=== PATIENT | female | born 1985 | race Caucasian/White ===

== ENCOUNTER 2018-02-04 17:07 | Inpatient (IN) | payer OTHER ==
[2018-02-04] MEDS ORDERED: Tranexamic Acid 1,000 MG in Sodium Chloride 0.9% 100 ML IV PRN (17:13)
[2018-02-04] MEDS ORDERED: Lidocaine 1% 50 ML MDV INJECT PRN (17:13)
[2018-02-04] MEDS ORDERED: Carboprost Tromethamine 250 MCG/1 ML Amp IM PRN (17:13)
[2018-02-04] MEDS ORDERED: Misoprostol 200 MCG Tab PO PRN (17:13)
[2018-02-04] MEDS ORDERED: Nalbuphine 10 MG/1 ML Vial IVPUSH PRN (17:13)
[2018-02-04] MEDS ORDERED: Sodium Chloride 0.9% 10 ML Syringe FLUSH PRN (17:13)
[2018-02-04] MEDS ORDERED: Water For Irrigation,Sterile 1,000 ML Container IRR PRN (17:13)
[2018-02-04] MEDS ORDERED: Sodium Chloride 0.9% 2.5 ML Syringe FLUSH PRN (17:13)
[2018-02-04] MEDS ORDERED: Methylergonovine 0.2 MG/1 ML Amp IM PRN (17:13)
[2018-02-04] MEDS ORDERED: Terbutaline 1 MG/ML SDV SUBCUT PRN (17:15)
[2018-02-04] MEDS ORDERED: Misoprostol 25 MCG (1/4 of 100 MCG) Tab VAG PRN (17:15)
[2018-02-04] MEDS ORDERED: Oxytocin/0.9 % Sodium Chloride 30 UNIT/500 ML BAG IV SCH ×2 (17:15)
[2018-02-04] MEDS ORDERED: Ampicillin 2 GM in Sodium Chloride 0.9% 100 ML IV ONE (17:24)
[2018-02-04] MEDS ORDERED: Misoprostol 25 MCG (1/4 of 100 MCG) Tab VAG ONE (17:30)
[2018-02-04] MEDS: Lactated Ringers 1,000 ML IV SCH (17:43)
[2018-02-04] MEDS: Ampicillin 1 GM in Sodium Chloride 0.9% 50 ML IV SCH (22:09)
[2018-02-05] MEDS: Ampicillin 1 GM in Sodium Chloride 0.9% 50 ML IV SCH ×5 (02:04→17:59)
[2018-02-05] MEDS: Butorphanol 1 MG/ML SDV IVPUSH PRN ×3 (02:46→07:30)
[2018-02-05] MEDS: Lactated Ringers 1,000 ML IV SCH ×2 (10:33→11:28)
[2018-02-05] MEDS ORDERED: fentaNYL 100 MCG/2 ML SDV ONE (11:08)
--- NOTE | 2018-02-05 11:45 | PCM.PREANE ---
Preanesthetic Assessment - Anesthesia/Transfusion/Family Hx Anesthesia History: Prior Anesthesia Reaction (pt states initially @ 3 yrs of age had a reaction to "tsering local anesthetics"; but then said has had similar reactions with general anesthesia where she gets bradycardic. Pt's HR appears to run 50's-60's) Other Type of Anesthesia Reaction Comment: bradycardia with general anesthesia, reports it does not happen every time Family History of Anesthesia Reaction: No Transfusion History: No Prior Transfusion(s) Intubation History: Unknown - Review of Systems General: No Symptoms Pulmonary: No Symptoms Cardiovascular: No Symptoms Gastrointestinal: No Symptoms Neurological: No Symptoms Other: Reports: None - Physical Assessment NPO Status Date: 02/05/18 NPO Status Time: 11:48 Blood Pressure: 136/79 Height: 5 ft 10.8 in Weight: 240 lb ASA Class: 2 Mental Status: Alert & Oriented x3 Airway Class: Mallampati = 2 Dentition: Reports: Normal Dentition Thyro-Mental Finger Breadths: 3 Mouth Opening Finger Breadths: 3 ROM/Head Extension: Full Lungs: Clear to Auscultation, Normal Respiratory Effort Cardiovascular: Regular Rate, Regular Rhythm, Bradycardia (borderline 50's-60's) - Lab Values: Laboratory Last Values WBC 12.43 K/uL (4.0-11.0) H 02/04/18 17:36 RBC 3.84 M/uL (4.30-5.90) L 02/04/18 17:36 Hgb 11.7 g/dL (12.0-16.0) L 02/04/18 17:36 Hct 35.0 % (36.0-46.0) L 02/04/18 17:36 MCV 91.1 fL (80.0-98.0) 02/04/18 17:36 MCH 30.5 pg (27.0-32.0) 02/04/18 17:36 MCHC 33.4 g/dL (31.0-37.0) 02/04/18 17:36 RDW Std Deviation 49.9 fl (28.0-62.0) 02/04/18 17:36 RDW Coeff of Alexx 15 % (11.0-15.0) 02/04/18 17:36 Plt Count 303 K/uL (150-400) 02/04/18 17:36 MPV 10.60 fL (7.40-12.00) 02/04/18 17:36 Nucleated RBC % 0.0 /100WBC 02/04/18 17:36 Nucleated RBCs # 0 K/uL 02/04/18 17:36 Blood Type O POSITIVE 02/04/18 17:36 Antibody Screen NEGATIVE 02/04/18 17:36 - Allergies Allergies/Adverse Reactions: Allergies Allergy/AdvReac Type Severity Reaction Status Date / Time Anesthetics - Tsering Type- Allergy Bradycardia Verified 04/09/16 14:12 Parabens [Anesthetics - Tsering Type] sulfamethoxazole Allergy Vomiting Verified 04/09/16 14:12 [From Bactrim] trimethoprim [From Bactrim] Allergy Vomiting Verified 04/09/16 14:12 molds Allergy Shortness Uncoded 04/09/16 14:12 of Breath - Blood Blood Available: No Product(s) Available: None - Anesthesia Plan Free Text/Narrative:: Labor Epidural Pre-Op Medication Ordered: None - Acknowledgements Anesthesia Type Planned: Epidural Pt an Appropriate Candidate for the Planned Anesthesia: Yes Alternatives and Risks of Anesthesia Discussed w Pt/Guardian: Yes Pt/Guardian Understands and Agrees with Anesthesia Plan: Yes PreAnesthesia Questionnaire HEENT History: Reports: Impaired Vision, Other (See Below) Other HEENT History: scotopic sensitivity Cardiovascular History: Reports: None Respiratory History: Reports: Asthma Gastrointestinal History: Reports: None Genitourinary History: Reports: None [employer] History: Reports: Ectopic , , Spontaneous Other OB/BYN History: Invitro- fertilization Musculoskeletal History: Reports: None Neurological History: Reports: None Psychiatric History: Reports: None Endocrine/Metabolic History: Reports: Hypothyroidism Hematologic History: Reports: None Immunologic History: Reports: None Oncologic (Cancer) History: Reports: None Dermatologic History: Reports: None - Infectious Disease History Infectious Disease History: Reports: None - Past Surgical History Head Surgeries/Procedures: Reports: None HEENT Surgical History: Reports: Adenoidectomy, Tonsillectomy Cardiovascular Surgical History: Reports: None Respiratory Surgical History: Reports: Other (See Below) GI Surgical History: Reports: None Endocrine Surgical History: Reports: None Musculoskeletal Surgical History: Reports: Arthroscopic Knee - SUBSTANCE USE Smoking Status *Q: Never Smoker Second Hand Smoke Exposure: No Days Per Week of Alcohol Use: 1 Recreational Drug Use History: No - HOME MEDS Home Medications: Home Meds Estrogen Tablets PO DAILY 04/09/16 [History] Levothyroxine [Synthroid] 50 mcg PO ACBREAKFAST 04/09/16 [History] #103/Iron Fumarate/Fa [ ] 1 each PO DAILY 04/09/16 [ History] Docosahexanoic Acid [DHA] 02/04/18 [History] Lansoprazole [Prevacid 24Hr] 15 mg PO DAILY 02/04/18 [History] Loratadine [Claritin] 10 mg PO 02/04/18 [History] Magnesium Amino Acid Chelate [Magnesium] 27 mg PO 02/04/18 [History] - CURRENT (IN HOUSE) MEDS Current Meds: Current Medications Butorphanol Tartrate (Stadol) 1 mg IVPUSH Q1H PRN PRN Reason: Pain Last Admin: 02/05/18 07:30 Dose: 1 mg Carboprost Tromethamine (Hemabate Ds) 250 mcg IM ASDIRECTED PRN PRN Reason: Post Hemorrhage Lactated Ringer's (Ringers, Lactated) 1,000 mls @ 150 mls/hr IV ASDIRECTED JEWELL Last Admin: 02/05/18 11:28 Dose: 150 mls/hr Oxytocin/Sodium Chloride (Oxytocin 30 Unit/500 Ml-Ns) 30 unit in 500 mls @ 999 mls/hr IV TITRATE [facility] Tranexamic Acid 1,000 mg/ (Sodium Chloride) 110 mls @ 660 mls/hr IV ONETIME PRN PRN Reason: Bleeding Oxytocin/Sodium Chloride (Oxytocin 30 Unit/500 Ml-Ns) 30 unit in 500 mls @ 2 mls/hr IV [facility]RATE [facility]; Protocol Last Titration: 02/05/18 09:49 Dose: 12 munits/min, 12 mls/hr Ampicillin Sodium 1 gm/ Sodium (Chloride) 50 mls @ 100 mls/hr IV Q4H [facility] Last Admin: 02/05/18 09:51 Dose: 100 mls/hr Lidocaine HCl (Xylocaine 1%) 50 ml INJECT .ONCE PRN PRN Reason: Laceration repair Methylergonovine Maleate (Methergine) 0.2 mg IM ASDIRECTED PRN PRN Reason: Post Hemorrhage Misoprostol (Cytotec) 200 mcg PO .ONCE PRN PRN Reason: Post Hemorrhage Misoprostol (Cytotec) 25 mcg VAG Q6H PRN PRN Reason: Cervical Ripening Last Admin: 02/05/18 00:05 Dose: 25 mcg Nalbuphine HCl (Nubain) 10 mg IVPUSH Q1H PRN PRN Reason: Pain (severe 7-10) Sodium Chloride (Saline Flush) 10 ml FLUSH ASDIRECTED PRN PRN Reason: Keep Vein Open Sodium Chloride (Saline Flush) 2.5 ml FLUSH ASDIRECTED PRN PRN Reason: Keep Vein Open Sterile Water (Sterile Water For Irrigation) 1,000 ml IRR ASDIRECTED PRN PRN Reason: delivery Terbutaline Sulfate (Brethine) 0.25 mg SUBCUT ASDIRECTED PRN PRN Reason: Tacysystole Discontinued Medications Fentanyl (Sublimaze) Confirm Administered Dose 100 mcg .ROUTE .STK-MED ONE Stop: 02/05/18 11:09 Ampicillin Sodium 2 gm/ Sodium (Chloride) 100 mls @ 200 mls/hr IV ONETIME ONE Stop: 02/04/18 17:53 Last Infusion: 02/04/18 18:30 Dose: Infused Fentanyl/Bupivacaine HCl (Ebifaoer-Cbqon-Cl 2 Mcg/Ml-0.125%) Confirm Administered Dose 100 mls @ as directed EP .STK-MED ONE Stop: 02/05/18 11:09 Misoprostol (Cytotec) 25 mcg VAG ONETIME ONE Stop: 02/04/18 17:31 Last Admin: 02/04/18 18:00 Dose: 25 mcg
[2018-02-05] MEDS ORDERED: Acetaminophen 500 MG Tab PO ONE (17:25)
--- NOTE | 2018-02-05 18:17 | PCM.SN ---
- Free Text/Narrative Note: consulted to exchange infusion bag running into epidural. 10 ml left. Pt using PCEA, last demand was 5-8 min ago. Feeling pressure on bottom. Last check showed 8 cm about 20 min ago. Gave an epidural bolus of 10 ml 0.125% bupiv with fent from the epidural bag. Bag changed to a new bag of 100 ml minus the 10 ml I winston from it. No comps. Report of my changes communicated to the OPTICAL TECHNICIAN front office manager.
[2018-02-05] MEDS ORDERED: Bisacodyl 10 MG Supp RECTAL PRN (19:24)
[2018-02-05] MEDS ORDERED: Acetaminophen 500 MG Tab PO PRN (19:24)
[2018-02-05] MEDS ORDERED: Witch Hazel Medicated Pads 40/Jar TOP PRN (19:24)
[2018-02-05] MEDS ORDERED: Methylergonovine 0.2 MG/1 ML Amp IM PRN (19:24)
[2018-02-05] MEDS ORDERED: Lanolin 100% Cream 7 GM Tube TOP PRN (19:24)
[2018-02-05] MEDS ORDERED: oxyCODONE 5 MG Tab PO PRN (19:24)
[2018-02-05] MEDS ORDERED: Ibuprofen 400 MG Tab PO PRN (19:24)
[2018-02-05] MEDS ORDERED: Docusate Sodium 100 MG Cap PO PRN (19:24)
[2018-02-05] MEDS ORDERED: Benzocaine/Menthol 20%-0.5% Spray 78 GM Cannister ONE (22:12)
[2018-02-05] MEDS: Ibuprofen 800 MG Tab PO PRN (22:16)
--- NOTE | 2018-02-06 00:50 | OR ---
SURGEON: Nicky Prescott M.D. DATE OF PROCEDURE: 02/05/2018 PREOPERATIVE DIAGNOSES: 1. A 40-3/7 weeks' intrauterine . 2. Polyhydramnios. 3. Group B Streptococcus positive. POSTOPERATIVE DIAGNOSES: 1. A 40-3/7 weeks' intrauterine . 2. Polyhydramnios. 3. Group B Streptococcus positive. PROCEDURES PERFORMED: Cytotec and Pitocin induction of labor, term spontaneous vaginal delivery, and repair of first-degree laceration. ANESTHESIA: Epidural. ESTIMATED BLOOD LOSS: Less than 300 mL. FINDINGS: Liveborn female, scores of 8 and 9, weight is pending at the time of dictation. Placenta; spontaneous, Schultze, intact with 3 vessels. First- degree perineal laceration repaired. COMPLICATIONS: None known. DISPOSITION: Mother and baby are in LDRP in good condition. BRIEF HISTORY: This is a 32-year-old female G2, P0-0-1-0. She presents at 40-3/7 weeks' gestation with polyhydramnios and for induction of labor. Her cervix was initially closed and thick. She received 3 doses of Cytotec vaginally followed by Pitocin in the morning. She was 2 cm and 50% effaced. Pitocin was initiated. She had category 1 heart tones. She had received ampicillin since onset of the Cytotec for group B Strep prophylaxis. She continued to have category 1 heart tones. She had spontaneous rupture of membranes at approximately 3:30 p.m., and by 6:30 p.m., she had progressed to complete. DESCRIPTION OF PROCEDURE: With the patient in the dorsal lithotomy position, the patient pushed over a 45- minute time period to a 5+ station, at which time the head was delivered spontaneously and atraumatically over the perineum with support with subsequent delivery of the 's shoulders and body without any difficulty. The infant was bulb suctioned by nose and mouth. The cord was clamped x2 and cut after it had ceased to pulsate, and the was handed to the mother in the presence of the nurse attending delivery. The is a liveborn female with scores of 8 and 9, weight was pending at the time of dictation. Cord blood was collected for cord ABGs as well as routine cord blood sampling. Pitocin was initiated after delivery of the infant to assist with delivery of the placenta, which was delivered spontaneously, Dorina, intact with 3 vessels. Upon inspection of the pelvis and perineum, there were no periurethral, vaginal sidewall, cervical, rectal, or labial lacerations. There was a first-degree laceration extending just through the skin on the perineum. This was repaired using a running locked suture of 3-0 Polysorb for the vaginal mucosa and a subcuticular suture of the same for the skin. Final sponge, needle, and instrument counts were correct. There were no known complications. Mother and remained in LDRP in good condition. RINA / SHARYN /[id number]
--- NOTE | 2018-02-06 06:05 | PCM48HPAN ---
Post Anesthesia Note - EVALUATION WITHIN 48HRS OF ANESTHETIC Vital Signs in Normal Range: Yes Patient Participated in Evaluation: Yes Respiratory Function Stable: Yes Airway Patent: Yes Cardiovascular Function Stable: Yes Hydration Status Stable: Yes Pain Control Satisfactory: Yes Nausea and Vomiting Control Satisfactory: Yes Mental Status Recovered: Yes Resp Rate: 16 Blood Pressure: 136/79 - COMMENTS/OBSERVATIONS Free Text/Narrative:: Pt sitting up in bed this AM. Pt denies any residual numbness, but states she hasn't been out of bed yet. No apparent anesthesia complications.
--- NOTE | 2018-02-06 08:13 | PCM.PNPP ---
- General Info Date of Service: 02/06/18 Functional Status: Reports: Pain Controlled, Tolerating Diet, Ambulating, Urinating - Review of Systems General: Denies: Fever, Weakness, Fatigue Pulmonary: Denies: Shortness of Breath, Pleuritic Chest Pain, Cough Cardiovascular: Denies: Chest Pain, Palpitations, Dyspnea on Exertion Gastrointestinal: Denies: Abdominal Pain Genitourinary: Denies: Dysuria - General Info Date of Service: 02/06/18 - Patient Data Vital Signs - Most Recent: Last Vital Signs Temp 36.9 C 02/06/18 05:58 Pulse 70 02/06/18 05:58 Resp 16 02/06/18 06:05 BP 136/79 02/06/18 06:05 Pulse Ox 96 02/06/18 05:58 Weight - Most Recent: 108.862 kg I&O - Last 24 Hours: Intake & Output 02/05/18 02/06/18 02/06/18 22:59 06:59 14:59 Output Total 350 Balance -350 Lab Results - Last 24 Hours: Laboratory Results - last 24 hr 02/06/18 Range/Units 04:35 Hgb 10.8 L (12.0-16.0) g/dL Hct 32.3 L (36.0-46.0) % Med Orders - Current: Current Medications Acetaminophen (Tylenol Extra Strength) 500 mg PO Q4H PRN PRN Reason: Pain Acetaminophen (Tylenol Extra Strength) 1,000 mg PO Q4H PRN PRN Reason: Pain Bisacodyl (Dulcolax) 10 mg RECTAL .ONCE PRN PRN Reason: Constipation Docusate Sodium (Colace) 100 mg PO BID PRN PRN Reason: Constipation Emollient Ointment (Lansinoh Hpa) 0 gm TOP ASDIRECTED PRN PRN Reason: Sore Nipples Last Admin: 02/05/18 21:51 Dose: 1 applic Ibuprofen (Motrin) 400 mg PO Q4H PRN PRN Reason: Pain Ibuprofen (Motrin) 800 mg PO Q6H PRN PRN Reason: Pain Last Admin: 02/05/18 22:16 Dose: 800 mg Methylergonovine Maleate (Methergine) 0.2 mg IM .ONCE PRN PRN Reason: Excessive Vaginal Bleeding Oxycodone HCl (Oxycodone) 5 mg PO Q2H PRN PRN Reason: Pain [place] (Tucks) 1 pad TOP ASDIRECTED PRN PRN Reason: comfort care Last Admin: 02/05/18 21:51 Dose: 1 applic Discontinued Medications Acetaminophen (Tylenol Extra Strength) 1,000 mg PO ONETIME ONE Stop: 02/05/18 17:26 Last Admin: 02/05/18 17:45 Dose: 1,000 mg Benzocaine/Menthol (Dermoplast Pain Relief 20%-0.5% [place]) Confirm Administered Dose 78 gm .ROUTE .STK-MED ONE Stop: 02/05/18 22:13 Butorphanol Tartrate (Stadol) 1 mg IVPUSH Q1H PRN PRN Reason: Pain Last Admin: 02/05/18 07:30 Dose: 1 mg Carboprost Tromethamine (Hemabate Ds) 250 mcg IM ASDIRECTED PRN PRN Reason: Post Hemorrhage Fentanyl (Sublimaze) Confirm Administered Dose 100 mcg .ROUTE .STK-MED ONE Stop: 02/05/18 11:09 Lactated Ringer's (Ringers, Lactated) 1,000 mls @ 150 mls/hr IV ASDIRECTED [facility]WE[facility] Last Admin: 02/05/18 11:28 Dose: 150 mls/hr Oxytocin/Sodium Chloride (Oxytocin 30 Unit/500 Ml-Ns) 30 unit in 500 mls @ 999 mls/hr IV TITRATE [facility] Tranexamic Acid 1,000 mg/ (Sodium Chloride) 110 mls @ 660 mls/hr IV ONETIME PRN PRN Reason: Bleeding Oxytocin/Sodium Chloride (Oxytocin 30 Unit/500 Ml-Ns) 30 unit in 500 mls @ 2 mls/hr IV TITRATE [facility]; Protocol Last Titration: 02/05/18 17:03 Dose: 20 munits/min, 20 mls/hr Ampicillin Sodium 2 gm/ Sodium (Chloride) 100 mls @ 200 mls/hr IV ONETIME ONE Stop: 02/04/18 17:53 Last Infusion: 02/04/18 18:30 Dose: Infused Ampicillin Sodium 1 gm/ Sodium (Chloride) 50 mls @ 100 mls/hr IV Q4H [facility] Last Admin: 02/05/18 17:59 Dose: 100 mls/hr Fentanyl/Bupivacaine HCl (L[place]uffe-Vgozb-Vi 2 Mcg/Ml-0.125%) Confirm Administered Dose 100 mls @ as directed EP .STK-MED ONE Stop: 02/05/18 11:09 Fentanyl/Bupivacaine HCl (Oiqrvfda-Ikqyu-Bc 2 Mcg/Ml-0.125%) Confirm Administered Dose 100 mls @ as directed EP .STK-MED ONE Stop: 02/05/18 18:04 Lidocaine HCl (Xylocaine 1%) 50 ml INJECT .ONCE PRN PRN Reason: Laceration repair Methylergonovine Maleate (Methergine) 0.2 mg IM ASDIRECTED PRN PRN Reason: Post Hemorrhage Misoprostol (Cytotec) 200 mcg PO .ONCE PRN PRN Reason: Post Hemorrhage Misoprostol (Cytotec) 25 mcg VAG ONETIME ONE Stop: 02/04/18 17:31 Last Admin: 02/04/18 18:00 Dose: 25 mcg Misoprostol (Cytotec) 25 mcg VAG Q6H PRN PRN Reason: Cervical Ripening Last Admin: 02/05/18 00:05 Dose: 25 mcg Nalbuphine HCl (Nubain) 10 mg IVPUSH Q1H PRN PRN Reason: Pain (severe 7-10) Sodium Chloride (Saline Flush) 10 ml FLUSH ASDIRECTED PRN PRN Reason: Keep Vein Open Sodium Chloride (Saline Flush) 2.5 ml FLUSH ASDIRECTED PRN PRN Reason: Keep Vein Open Sterile Water (Sterile Water For Irrigation) 1,000 ml IRR ASDIRECTED PRN PRN Reason: delivery Last Admin: 02/05/18 19:43 Dose: 1,000 ml Terbutaline Sulfate (Brethine) 0.25 mg SUBCUT ASDIRECTED PRN PRN Reason: Tacysystole - Infant Interaction Infant Disposition, : in Room with Family Interaction: Holding Infant Feeding: Breastfed Infant; Nursed Well Support Person: - Recovery Exam Fundal Tone: Firm Fundal Level: At Umbilicus Fundal Placement: Midline Lochia Amount: Small Lochia Color: Rubra/Red Perineum Description: Edematous Episiotomy/Laceration: Approximated Bladder Status: Voiding - Exam General: Alert, Oriented Neck: Supple Lungs: Clear to Auscultation Cardiovascular: Regular Rate, Regular Rhythm GI/Abdominal Exam: Normal Bowel Sounds, Soft, Non-Tender, No Distention Extremities: Normal Inspection, Normal Capillary Refill, Pedal Edema (trace) - Problem List Review Problem List Initiated/Reviewed/Updated: Yes - Assessment Assessment:: PPD #1 from minimal pain and lochia. Breast feeding well. Discharge home today. - Plan Plan:: Discharge instructions reviewed. Pelvic rest for 6 weeks. Continue PNV while breast feeding. Can use OTC ibuprofen/tylenol as needed for pain. Instructed patient to call if she develops fever greater than 101 or bleeding through a large pad an hour. F/U with [facility] in 6 weeks.
[2018-02-06] MEDS: Ibuprofen 800 MG Tab PO PRN ×3 (08:23→22:31)
[2018-02-06] MEDS: Acetaminophen 500 MG Tab PO PRN ×2 (12:32→19:36)
[2018-02-07] MEDS: Ibuprofen 800 MG Tab PO PRN ×2 (04:28→10:16)
--- NOTE | 2018-02-07 08:36 | PCM.PNPP ---
- General Info Date of Service: 02/07/18 Functional Status: Reports: Pain Controlled, Tolerating Diet, Ambulating - Review of Systems General: Reports: No Symptoms HEENT: Reports: No Symptoms Pulmonary: Reports: No Symptoms Cardiovascular: Reports: No Symptoms Gastrointestinal: Reports: No Symptoms Genitourinary: Reports: No Symptoms Musculoskeletal: Reports: No Symptoms Skin: Reports: No Symptoms Neurological: Reports: No Symptoms Psychiatric: Reports: No Symptoms - Patient Data Vital Signs - Most Recent: Last Vital Signs Temp 36.7 C 02/07/18 04:00 Pulse 62 02/07/18 04:00 Resp 15 02/07/18 04:00 BP 118/69 02/07/18 04:00 Pulse Ox 98 02/07/18 04:00 Weight - Most Recent: 108.862 kg Med Orders - Current: Current Medications Acetaminophen (Tylenol Extra Strength) 500 mg PO Q4H PRN PRN Reason: Pain Acetaminophen (Tylenol Extra Strength) 1,000 mg PO Q4H PRN PRN Reason: Pain Last Admin: 02/06/18 19:36 Dose: 1,000 mg Bisacodyl (Dulcolax) 10 mg RECTAL .ONCE PRN PRN Reason: Constipation Docusate Sodium (Colace) 100 mg PO BID PRN PRN Reason: Constipation Emollient Ointment (Lansinoh Hpa) 0 gm TOP ASDIRECTED PRN PRN Reason: Sore Nipples Last Admin: 02/05/18 21:51 Dose: 1 applic Ibuprofen (Motrin) 400 mg PO Q4H PRN PRN Reason: Pain Ibuprofen (Motrin) 800 mg PO Q6H PRN PRN Reason: Pain Last Admin: 02/07/18 04:28 Dose: 800 mg Methylergonovine Maleate (Methergine) 0.2 mg IM .ONCE PRN PRN Reason: Excessive Vaginal Bleeding Oxycodone HCl (Oxycodone) 5 mg PO Q2H PRN PRN Reason: Pain [place] (Tucks) 1 pad TOP ASDIRECTED PRN PRN Reason: comfort care Last Admin: 02/05/18 21:51 Dose: 1 applic Discontinued Medications Acetaminophen (Tylenol Extra Strength) 1,000 mg PO ONETIME ONE Stop: 02/05/18 17:26 Last Admin: 02/05/18 17:45 Dose: 1,000 mg Benzocaine/Menthol (Dermoplast Pain Relief 20%-0.5% [place]) Confirm Administered Dose 78 gm .ROUTE .STK-MED ONE Stop: 02/05/18 22:13 Butorphanol Tartrate (Stadol) 1 mg IVPUSH Q1H PRN PRN Reason: Pain Last Admin: 02/05/18 07:30 Dose: 1 mg Carboprost Tromethamine (Hemabate Ds) 250 mcg IM ASDIRECTED PRN PRN Reason: Post Hemorrhage Fentanyl (Sublimaze) Confirm Administered Dose 100 mcg .ROUTE .STK-MED ONE Stop: 02/05/18 11:09 Lactated Ringer's (Ringers, Lactated) 1,000 mls @ 150 mls/hr IV ASDIRECTED [facility]WELL Last Admin: 02/05/18 11:28 Dose: 150 mls/hr Oxytocin/Sodium Chloride (Oxytocin 30 Unit/500 Ml-Ns) 30 unit in 500 mls @ 999 mls/hr IV TITRATE [facility] Tranexamic Acid 1,000 mg/ (Sodium Chloride) 110 mls @ 660 mls/hr IV ONETIME PRN PRN Reason: Bleeding Oxytocin/Sodium Chloride (Oxytocin 30 Unit/500 Ml-Ns) 30 unit in 500 mls @ 2 mls/hr IV TITRATE [facility]; Protocol Last Titration: 02/05/18 17:03 Dose: 20 munits/min, 20 mls/hr Ampicillin Sodium 2 gm/ Sodium (Chloride) 100 mls @ 200 mls/hr IV ONETIME ONE Stop: 02/04/18 17:53 Last Infusion: 02/04/18 18:30 Dose: Infused Ampicillin Sodium 1 gm/ Sodium (Chloride) 50 mls @ 100 mls/hr IV Q4H [facility] Last Admin: 02/05/18 17:59 Dose: 100 mls/hr Fentanyl/Bupivacaine HCl (Qbbycgsx-Ytntj-Td 2 Mcg/Ml-0.125%) Confirm Administered Dose 100 mls @ as directed EP .STK-MED ONE Stop: 02/05/18 11:09 Fentanyl/Bupivacaine HCl (Bhbecuyu-Gcnkd-Oq 2 Mcg/Ml-0.125%) Confirm Administered Dose 100 mls @ as directed EP .STK-MED ONE Stop: 02/05/18 18:04 Lidocaine HCl (Xylocaine 1%) 50 ml INJECT .ONCE PRN PRN Reason: Laceration repair Methylergonovine Maleate (Methergine) 0.2 mg IM ASDIRECTED PRN PRN Reason: Post Hemorrhage Misoprostol (Cytotec) 200 mcg PO .ONCE PRN PRN Reason: Post Hemorrhage Misoprostol (Cytotec) 25 mcg VAG ONETIME ONE Stop: 02/04/18 17:31 Last Admin: 02/04/18 18:00 Dose: 25 mcg Misoprostol (Cytotec) 25 mcg VAG Q6H PRN PRN Reason: Cervical Ripening Last Admin: 02/05/18 00:05 Dose: 25 mcg Nalbuphine HCl (Nubain) 10 mg IVPUSH Q1H PRN PRN Reason: Pain (severe 7-10) Sodium Chloride (Saline Flush) 10 ml FLUSH ASDIRECTED PRN PRN Reason: Keep Vein Open Sodium Chloride (Saline Flush) 2.5 ml FLUSH ASDIRECTED PRN PRN Reason: Keep Vein Open Sterile Water (Sterile Water For Irrigation) 1,000 ml IRR ASDIRECTED PRN PRN Reason: delivery Last Admin: 02/05/18 19:43 Dose: 1,000 ml Terbutaline Sulfate (Brethine) 0.25 mg SUBCUT ASDIRECTED PRN PRN Reason: Tacysystole - Infant Interaction Disposition, : in Room with Family Interaction: Holding Feeding: Breastfed Infant; Nursed Well Support Person: - Recovery Exam Fundal Tone: Firm Fundal Level: 2 Fingerbreadths Below Umbilicus Fundal Placement: Midline Lochia Amount: Scant Lochia Color: Rubra/Red Perineum Description: Other (see below) Other Perinuem Description: 1st degree laceration, repaired Episiotomy/Laceration: Approximated Bladder Status: Voiding Urinary Elimination: Voided - Exam General: Alert, Oriented HEENT: Pupils Equal Neck: Supple Lungs: Normal Respiratory Effort GI/Abdominal Exam: Normal Bowel Sounds, Soft, Non-Tender, No Organomegaly, No Mass Extremities: Non-Tender, No Pedal Edema Skin: Warm, Dry, Intact Neurological: No New Focal Deficit Psy/Mental Status: Alert, Normal Affect, Normal Mood - Problem List & Annotations (1) Vaginal delivery SNOMED Code(s): 220371993 Code(s): O80 - ENCOUNTER FOR FULL-TERM UNCOMPLICATED DELIVERY Status: Acute Current Visit: Yes - Problem List Review Problem List Initiated/Reviewed/Updated: Yes - Assessment Assessment:: PPD #2 from minimal pain and lochia. Breast feeding well, working with development consultant. Discharge home today. - Plan Plan:: Discharge instructions reviewed. Pelvic rest for 6 weeks. Continue PNV while breast feeding. Can use OTC ibuprofen/tylenol as needed for pain. Instructed patient to call if she develops fever greater than 101 or bleeding through a large pad an hour. F/U with [facility] in 6 weeks.
[2018-02-07 11:26] VITALS: BP 139/90
== END 2018-02-07 14:45 | disposition home or self-care (01) | DRG 775 ==
LOC: MW.OBCHECK 17:07 → MW.OB 17:08 → MW.OBCHECK 17:14 → MW.OB 17:14 → OBSVTOIN 18:54 → MW.OB 02-05 23:46
PROVIDERS: ADMIT Obstetrics & Gynecology; ATTEND Obstetrics & Gynecology
PROC: 10E0XZZ Delivery of Products of Conception, External Approach (ICD-10-PCS; principal; 2018-02-04)
PROC: 3E0P7VZ Introduction of Hormone into Female Reproductive, Via Natural or Artificial Opening (ICD-10-PCS; 2018-02-04)
PROC: 3E033VJ Introduction of Other Hormone into Peripheral Vein, Percutaneous Approach (ICD-10-PCS; 2018-02-04)
PROC: 10907ZC Drainage of Amniotic Fluid, Therapeutic from Products of Conception, Via Natural or Artificial Opening (ICD-10-PCS; 2018-02-04)
PROC: 0HQ9XZZ Repair Perineum Skin, External Approach (ICD-10-PCS; 2018-02-04)
DX: O40.3XX0 Polyhydramnios, third trimester, not applicable or unspecified (principal); O70.0 First degree perineal laceration during delivery; O99.824 Streptococcus B carrier state complicating childbirth; Z3A.40 40 weeks gestation of pregnancy; Z37.0 Single live birth
CPT/HCPCS: 36415; 51702; 59025; 59409; 85014; 85018; 85027; 86850; 86900; 86901; A9270-GY; J0290; J0595; J2590; J3010; J7030; J7050; J7120

== ENCOUNTER 2020-06-17 05:01 | Inpatient (IN) | payer OTHER ==
[2020-06-17] MEDS ORDERED: Carboprost Tromethamine 250 MCG/1 ML Amp IM PRN (05:24)
[2020-06-17] MEDS ORDERED: Sodium Chloride 0.9% 2.5 ML Syringe FLUSH PRN (05:24)
[2020-06-17] MEDS ORDERED: Lidocaine 1% 50 ML MDV INJECT PRN (05:24)
[2020-06-17] MEDS ORDERED: Misoprostol 200 MCG Tab PO PRN (05:24)
[2020-06-17] MEDS ORDERED: Water For Irrigation,Sterile 1,000 ML Container IRR PRN (05:24)
[2020-06-17] MEDS ORDERED: Butorphanol 1 MG/ML SDV IVPUSH PRN (05:24)
[2020-06-17] MEDS ORDERED: Tranexamic Acid 1,000 MG in Sodium Chloride 0.9% 100 ML IV PRN (05:24)
[2020-06-17] MEDS ORDERED: Methylergonovine 0.2 MG/1 ML Amp IM PRN (05:24)
[2020-06-17] MEDS ORDERED: Sodium Chloride 0.9% 10 ML SDV IV PRN (05:24)
[2020-06-17] MEDS ORDERED: Nalbuphine 10 MG/1 ML Vial IVPUSH PRN (05:24)
[2020-06-17] MEDS ORDERED: Sodium Chloride 0.9% 10 ML Syringe FLUSH PRN (05:24)
[2020-06-17] MEDS ORDERED: Terbutaline 1 MG/ML SDV SUBCUT PRN (05:26)
[2020-06-17] MEDS ORDERED: Oxytocin/0.9 % Sodium Chloride 30 UNIT/500 ML BAG IV SCH ×2 (05:30)
[2020-06-17] MEDS ORDERED: Ampicillin 2 GM in Sodium Chloride 0.9% 100 ML IV ONE (05:51)
[2020-06-17] MEDS: Lactated Ringers 1,000 ML IV SCH ×3 (06:05→18:53)
[2020-06-17] MEDS: Ampicillin 1 GM in Sodium Chloride 0.9% 50 ML IV SCH ×3 (10:21→18:54)
--- NOTE | 2020-06-17 19:36 | PCM.PREANE ---
Preanesthetic Assessment - Anesthesia/Transfusion/Family Hx Anesthesia History: Prior Anesthesia Reaction (pt states initially @ 3 yrs of age had a reaction to "tsering local anesthetics"; but then said has had similar reactions with general anesthesia where she gets bradycardic. Pt's HR appears to run 50's-60's) Other Type of Anesthesia Reaction Comment: bradycardia with general anesthesia, reports it does not happen every time Transfusion History: No Prior Transfusion(s) Intubation History: Unknown - Review of Systems General: No Symptoms Pulmonary: No Symptoms Cardiovascular: No Symptoms Gastrointestinal: No Symptoms Neurological: No Symptoms Other: Reports: None - Physical Assessment NPO Status Date: 06/17/20 NPO Status Time: 19:27 Height: 1.78 m Weight: 108.409 kg ASA Class: 2 Mental Status: Alert & Oriented x3 Airway Class: Mallampati = 2 Dentition: Reports: Normal Dentition Thyro-Mental Finger Breadths: 3 Mouth Opening Finger Breadths: 3 ROM/Head Extension: Full Lungs: Clear to Auscultation, Normal Respiratory Effort Cardiovascular: Regular Rate, Regular Rhythm - Lab Values: Laboratory Last Values WBC 10.03 K/uL (4.0-11.0) 06/17/20 05:40 RBC 3.82 M/uL (4.30-5.90) L 06/17/20 05:40 Hgb 11.3 g/dL (12.0-16.0) L 06/17/20 05:40 Hct 35.0 % (36.0-46.0) L 06/17/20 05:40 MCV 91.6 fL (80.0-98.0) 06/17/20 05:40 MCH 29.6 pg (27.0-32.0) 06/17/20 05:40 MCHC 32.3 g/dL (31.0-37.0) 06/17/20 05:40 RDW Std Deviation 49.9 fl (28.0-62.0) 06/17/20 05:40 RDW Coeff of Alexx 15 % (11.0-15.0) 06/17/20 05:40 Plt Count 262 K/uL (150-400) 06/17/20 05:40 MPV 10.60 fL (7.40-12.00) 06/17/20 05:40 Nucleated RBC % 0.0 /100WBC 06/17/20 05:40 Nucleated RBCs # 0 K/uL 06/17/20 05:40 SARS-CoV-2 RNA (ELLE) NEGATIVE (NEGATIVE) 06/17/20 05:48 Blood Type O POSITIVE 06/17/20 05:40 Antibody Screen NEGATIVE 06/17/20 05:40 - Allergies Allergies/Adverse Reactions: Allergies Allergy/AdvReac Type Severity Reaction Status Date / Time Anesthetics - Tsering Type- Allergy Bradycardia Verified 06/17/20 05:24 Parabens [Anesthetics - Tsering Type] sulfamethoxazole Allergy Vomiting Verified 06/17/20 05:24 [From Bactrim] trimethoprim [From Bactrim] Allergy Vomiting Verified 06/17/20 05:24 molds Allergy Shortness Uncoded 06/17/20 05:24 of Breath - Acknowledgements Anesthesia Type Planned: Epidural (patient understands and accepts the risks and benefits. All questions answered. She has consented for epidural. ) Pt an Appropriate Candidate for the Planned Anesthesia: Yes Alternatives and Risks of Anesthesia Discussed w Pt/Guardian: Yes Pt/Guardian Understands and Agrees with Anesthesia Plan: Yes PreAnesthesia Questionnaire HEENT History: Reports: Impaired Vision, Other (See Below) Other HEENT History: scotopic sensitivity Cardiovascular History: Reports: None Respiratory History: Reports: Asthma (10 years ago.) Gastrointestinal History: Reports: GERD (during ) Genitourinary History: Reports: None DEVELOPMENTAL TRAINING COUNSELOR History: Reports: Ectopic , , Spontaneous Other OB/BYN History: Invitro- fertilization Musculoskeletal History: Reports: None Neurological History: Reports: None Psychiatric History: Reports: None Endocrine/Metabolic History: Reports: Hypothyroidism, Obesity/BMI 30+ Hematologic History: Reports: None Immunologic History: Reports: None Oncologic (Cancer) History: Reports: None Dermatologic History: Reports: None - Infectious Disease History Infectious Disease History: Reports: None - Past Surgical History Head Surgeries/Procedures: Reports: None HEENT Surgical History: Reports: Adenoidectomy, Tonsillectomy Cardiovascular Surgical History: Reports: None Respiratory Surgical History: Reports: Other (See Below) GI Surgical History: Reports: None Endocrine Surgical History: Reports: None Musculoskeletal Surgical History: Reports: Arthroscopic Knee - History Comment History Comment: etoh "minimal" none during - SUBSTANCE USE Smoking Status *Q: Never Smoker Recreational Drug Use History: No - HOME MEDS Home Medications: Home Meds Levothyroxine [Synthroid] 50 mcg PO ACBREAKFAST 04/09/16 [History] #103/Iron Fumarate/Fa [ ] 1 each PO DAILY 04/09/16 [History] Escitalopram Oxalate [Lexapro] 5 mg PO DAILY 08/17/18 [History] - CURRENT (IN HOUSE) MEDS Current Meds: Current Medications Butorphanol Tartrate (Stadol) 1 mg IVPUSH Q1H PRN PRN Reason: Pain Carboprost Tromethamine (Hemabate Ds) 250 mcg IM ASDIRECTED PRN PRN Reason: Post Hemorrhage Oxytocin/Sodium Chloride (Oxytocin 30 Unit/500 Ml-Ns) 30 unit in 500 mls @ 500 mls/hr IV TITRATE [facility] Tranexamic Acid 1,000 mg/ (Sodium Chloride) 110 mls @ 660 mls/hr IV ONETIME PRN PRN Reason: Bleeding Lactated Ringer's (Ringers, Lactated) 1,000 mls @ 150 mls/hr IV ASDIRECTED [facility] Last Admin: 06/17/20 18:53 Dose: 150 mls/hr Documented by: Oxytocin/Sodium Chloride (Oxytocin 30 Unit/500 Ml-Ns) 30 unit in 500 mls @ 2 mls/hr IV TITRATE [facility]; Protocol Last Titration: 06/17/20 14:49 Dose: 12 munits/min, 12 mls/hr Documented by: Ampicillin Sodium 1 gm/ Sodium (Chloride) 50 mls @ 100 mls/hr IV Q4H [facility] Last Admin: 06/17/20 18:54 Dose: 100 mls/hr Documented by: Lidocaine HCl (Xylocaine 1%) 50 ml INJECT ONETIME PRN PRN Reason: Laceration repair Methylergonovine Maleate (Methergine) 0.2 mg IM ASDIRECTED PRN PRN Reason: Post Hemorrhage Misoprostol (Cytotec) 200 mcg PO ONETIME PRN PRN Reason: Post Hemorrhage Nalbuphine HCl (Nubain) 10 mg IVPUSH Q1H PRN PRN Reason: Pain (severe 7-10) Sodium Chloride (Saline Flush) 10 ml FLUSH ASDIRECTED PRN PRN Reason: Keep Vein Open Sodium Chloride (Saline Flush) 2.5 ml FLUSH ASDIRECTED PRN PRN Reason: Keep Vein Open Sodium Chloride (Normal Saline) 10 ml IV ASDIRECTED PRN PRN Reason: IV Use Sterile Water (Sterile Water For Irrigation) 1,000 ml IRR ASDIRECTED PRN PRN Reason: delivery Terbutaline Sulfate (Brethine) 0.25 mg SUBCUT ASDIRECTED PRN PRN Reason: Tacysystole Discontinued Medications Ampicillin Sodium 2 gm/ Sodium (Chloride) 100 mls @ 200 mls/hr IV ONETIME ONE Stop: 06/17/20 06:20 Last Admin: 06/17/20 06:06 Dose: 200 mls/hr Documented by:
[2020-06-17] MEDS ORDERED: Ropivacaine HCl/PF 100 ML ONE (19:37)
[2020-06-17] MEDS ORDERED: Bupivacaine 0.25% 10 ML SDV ONE (20:35)
--- NOTE | 2020-06-17 21:07 | PCM.SN.2 ---
- Free Text/Narrative Note: Consent signed. time out 19:51, epidural done with an aseptic technique. back prepped with chloraprep. 1% lidocaine 5 ml for skin infiltraion. 17 gauge touhy brenda with air at 6 cm, epidural catheter threaded easily. aspiration negative for heme and csf. test dose done at 2004 with 1.5% lidocaine with epi 3 ml, and was negative. There were no paresthesias with injection. 2 ml of 1.5 % lidocaine with epinephrine given as bolus at 2006, epidural catheter secured. There were no paresthesias with injection. patient states that she feels epidural more on the right. placed her in left lateral decubitus, and 0.25% bupivacaine 5 ml given. patient able to communicate throughout the procedure and she tolerated it well.
[2020-06-17] MEDS ORDERED: Benzocaine/Menthol 20%-0.5% Spray 78 GM Cannister TOP PRN (22:26)
[2020-06-17] MEDS ORDERED: Witch Hazel Medicated Pads 40/Jar TOP PRN (22:26)
[2020-06-17] MEDS ORDERED: Acetaminophen 500 MG Tab PO PRN (22:26)
[2020-06-17] MEDS ORDERED: Ibuprofen 800 MG Tab PO PRN (22:26)
[2020-06-17] MEDS ORDERED: Bisacodyl 10 MG Supp RECTAL PRN (22:26)
[2020-06-17] MEDS ORDERED: oxyCODONE 5 MG Tab PO PRN (22:26)
[2020-06-17] MEDS ORDERED: Docusate Sodium 100 MG Cap PO PRN (22:26)
[2020-06-17] MEDS ORDERED: Lanolin 100% Cream 7 GM Tube TOP PRN (22:26)
[2020-06-17] MEDS ORDERED: ceFAZolin 2 GM in Premix Bag 1 BAG IV ONE (22:28)
--- NOTE | 2020-06-17 22:31 | PCM.DEL ---
L & D Note - General Info Date of Service: 06/17/20 Mother's Due Date: 06/19/20 - Delivery Note Labor: Induced by Oxytocin Cervical Ripening Method: Oxytocin Delivery Outcome: Livebirth Infant Delivery Method: Spontaneous Vaginal Delivery-Single Presentation: Vertex Nuchal Cord: Present, Reduced (after delivery of body) Anesthesia Type: Epidural Amniotic Fluid Description: Clear Episiotomy Type: None Laceration: None Placenta: Intact, Manual Removal Cord: 3 Vessels Estimated Blood Loss: 300 : Suctioned, Bulb Syringe, Stimulated Score 1 min: 7 Score 5 min: 9 - General Info Date of Service: 06/17/20 - Patient Data Weight - Most Recent: 108.409 kg Lab Results Last 24 Hours: Laboratory Results - last 24 hr 06/17/20 06/17/20 06/17/20 Range/Units 05:40 05:40 05:48 WBC 10.03 (4.0-11.0) K/uL RBC 3.82 L (4.30-5.90) M/uL Hgb 11.3 L (12.0-16.0) g/dL Hct 35.0 L (36.0-46.0) % MCV 91.6 (80.0-98.0) fL MCH 29.6 (27.0-32.0) pg MCHC 32.3 (31.0-37.0) g/dL RDW Std Deviation 49.9 (28.0-62.0) fl RDW Coeff of Alexx 15 (11.0-15.0) % Plt Count 262 (150-400) K/uL MPV 10.60 (7.40-12.00) fL Nucleated RBC % 0.0 /100WBC Nucleated RBCs # 0 K/uL SARS-CoV-2 RNA (ELLE) NEGATIVE (NEGATIVE) Blood Type O POSITIVE Antibody Screen NEGATIVE Med Orders - Current: Current Medications Acetaminophen (Tylenol Extra Strength) 1,000 mg PO Q6H PRN PRN Reason: Pain Benzocaine/Menthol (Dermoplast Pain Relief 20%-0.5% [place]) 78 gm TOP ASDIRECTED PRN PRN Reason: Perineal Comfort Measure Bisacodyl (Dulcolax) 10 mg RECTAL ONETIME PRN PRN Reason: Constipation Butorphanol Tartrate (Stadol) 1 mg IVPUSH Q1H PRN PRN Reason: Pain Carboprost Tromethamine (Hemabate Ds) 250 mcg IM ASDIRECTED PRN PRN Reason: Post Hemorrhage Docusate Sodium (Colace) 100 mg PO BID PRN PRN Reason: Constipation Emollient Ointment (Lansinoh Hpa) 0 gm TOP ASDIRECTED PRN PRN Reason: Sore Nipples Oxytocin/Sodium Chloride (Oxytocin 30 Unit/500 Ml-Ns) 30 unit in 500 mls @ 500 mls/hr IV TITRATE [facility] Tranexamic Acid 1,000 mg/ (Sodium Chloride) 110 mls @ 660 mls/hr IV ONETIME PRN PRN Reason: Bleeding Lactated Ringer's (Ringers, Lactated) 1,000 mls @ 150 mls/hr IV ASDIRECTED [facility] Last Admin: 06/17/20 18:53 Dose: 150 mls/hr Documented by: Oxytocin/Sodium Chloride (Oxytocin 30 Unit/500 Ml-Ns) 30 unit in 500 mls @ 2 mls/hr IV TITRATE [facility]; Protocol Last Titration: 06/17/20 17:45 Dose: 20 munits/min, 20 mls/hr Documented by: Ampicillin Sodium 1 gm/ Sodium (Chloride) 50 mls @ 100 mls/hr IV Q4H [facility] Last Admin: 06/17/20 18:54 Dose: 100 mls/hr Documented by: Cefazolin Sodium/Dextrose 2 gm (/ Premix) 50 mls @ 100 mls/hr IV ONETIME ONE Stop: 06/17/20 22:57 Ibuprofen (Motrin) 800 mg PO Q8H PRN PRN Reason: Pain Levothyroxine Sodium (Synthroid) 50 mcg PO ACBREAKFAST [facility] Lidocaine HCl (Xylocaine 1%) 50 ml INJECT ONETIME PRN PRN Reason: Laceration repair Methylergonovine Maleate (Methergine) 0.2 mg IM ASDIRECTED PRN PRN Reason: Post Hemorrhage Misoprostol (Cytotec) 200 mcg PO ONETIME PRN PRN Reason: Post Hemorrhage Nalbuphine HCl (Nubain) 10 mg IVPUSH Q1H PRN PRN Reason: Pain (severe 7-10) Non-Formulary Medication (Escitalopram Oxalate [Lexapro]) 5 mg PO DAILY [facility] Oxycodone HCl (Oxycodone) 5 mg PO Q2H PRN PRN Reason: Pain Sodium Chloride (Saline Flush) 10 ml FLUSH ASDIRECTED PRN PRN Reason: Keep Vein Open Sodium Chloride (Saline Flush) 2.5 ml FLUSH ASDIRECTED PRN PRN Reason: Keep Vein Open Sodium Chloride (Normal Saline) 10 ml IV ASDIRECTED PRN PRN Reason: IV Use Sterile Water (Sterile Water For Irrigation) 1,000 ml IRR ASDIRECTED PRN PRN Reason: delivery Terbutaline Sulfate (Brethine) 0.25 mg SUBCUT ASDIRECTED PRN PRN Reason: Tacysystole [place] (Tucks) 1 pad TOP ASDIRECTED PRN PRN Reason: comfort care Discontinued Medications Bupivacaine HCl (Sensorcaine-Mpf 0.25%) Confirm Administered Dose 10 ml .ROUTE .STK-MED ONE Stop: 06/17/20 20:36 Ampicillin Sodium 2 gm/ Sodium (Chloride) 100 mls @ 200 mls/hr IV ONETIME ONE Stop: 06/17/20 06:20 Last Admin: 06/17/20 06:06 Dose: 200 mls/hr Documented by: Ropivacaine (Naropin 0.2%) Confirm Administered Dose 100 mls @ as directed .ROUTE .STK-MED ONE Stop: 06/17/20 19:38 - Problem List & Annotations (1) Vaginal delivery SNOMED Code(s): 090997743 Code(s): O80 - ENCOUNTER FOR FULL-TERM UNCOMPLICATED DELIVERY Status: Acute Current Visit: No - Problem List Review Problem List Initiated/Reviewed/Updated: Yes - My Orders Last 24 Hours: My Active Orders 06/17/20 Dinner Regular Diet [DIET] 06/17/20 22:26 Patient Status [ADT] Routine Cooling Warming Measures [RC] ASDIRECTED May Shower [RC] ASDIRECTED Notify Provider Vital Signs [RC] ASDIRECTED Up ad Radha [RC] ASDIRECTED Vital Signs [RC] PER UNIT ROUTINE Acetaminophen [Tylenol Extra Strength] 1,000 mg PO Q6H PRN Benzocaine/Menthol [Dermoplast Pain Relief 20%-0.5% [place]] 78 gm TOP ASDIRECTED PRN Docusate Sodium [Colace] 100 mg PO BID PRN Ibuprofen [Motrin] 800 mg PO Q8H PRN Lanolin [Lansinoh HPA] See Dose Instructions TOP ASDIRECTED PRN bisacodyL [Dulcolax] 10 mg RECTAL ONETIME PRN oxyCODONE 5 mg PO Q2H PRN witch [place] [Tucks] 1 pad TOP ASDIRECTED PRN Assess Lochia [WOMSER] Per Unit Routine Assess Uterine Involution [WOMSER] Per Unit Routine Breast Pump [WOMSER] Per Unit Routine Ice Therapy [OM.PC] Per Unit Routine Perineal Care [OM.PC] Per Unit Routine Peripheral IV Discontinue [OM.PC] Routine Sitz Bath [OM.PC] Per Unit Routine 06/17/20 22:28 ceFAZolin [Ancef] 2 gm Premix Bag 1 bag IV ONETIME 06/18/20 05:11 HEMOGLOBIN/HEMATOCRIT,HH [HEME] Timed 06/18/20 07:30 Levothyroxine [Synthroid] 50 mcg PO ACBREAKFAST 06/18/20 09:00 Escitalopram Oxalate [Lexapro] 5 mg PO DAILY - Assessment Assessment:: 34yo s/p at 39w5d - Plan Plan:: Admit to unit for routine care. Ancef 2g x1 IV due to manual extraction of placenta. Automatic Brine Mixer Operator aware of VSD. Continue Levothyroxine and Escitalopram.
[2020-06-18] MEDS ORDERED: Measles, Mumps & Rubella Vaccine 0.5 ML SDV SUBCUT ONE (01:34)
--- NOTE | 2020-06-18 02:57 | OR ---
SURGEON: Dhara Cortes MD DATE OF PROCEDURE: 06/17/2020 PREOPERATIVE DIAGNOSES: 1. 34-year-old G4, P1-0-2-1 at 39 weeks and 5 days' gestation. 2. Induction of labor. 3. ventricular septal defect. 4. Hypothyroidism on Levothyroxine. 5. Depression, anxiety on Escitalopram. 6. Group B streptococcus positive. POSTOPERATIVE DIAGNOSES: 1. 34-year-old G4, P2-0-2-2, status post spontaneous vaginal delivery at 39 weeks and 5 days' gestation. 2. ventricular septal defect. 3. Hypothyroidism on Levothyroxine. 4. Depression, anxiety on Escitalopram. 5. Group B streptococcus positive, received adequate prophylaxis with Ampicillin. 6. Retained placenta. PROCEDURE: Spontaneous vaginal delivery and manual extraction of placenta. PRIMARY SURGEON: Dhara Cortes MD ANESTHESIA: Epidural. ANTIBIOTICS: Ampicillin GBS prophylaxis during induction of labor and 2 g IV Ancef due to manual extraction of placenta. ESTIMATED BLOOD LOSS: 300 mL. FINDINGS: Live female in cephalic presentation. Nuchal cord x1 reduced after delivery of the body. score 7 and 9 at one and five minutes respectively. Weight 3650 g. Retained placenta with 3-vessel cord and appeared intact after manual extraction. INDICATIONS: This is a 34-year-old G4, P1-0-2-1 who presented at 39 weeks and 5 days' gestation for planned induction of labor due to ventricular septal defect. Ampicillin was begun for GBS prophylaxis. She was started on Pitocin for induction of labor. At approximately 4 cm dilated, artificial rupture of membranes occurred with clear fluid noted. She received an epidural for pain control. She progressed to complete cervical dilation. I was called to the room. DESCRIPTION OF PROCEDURE: Over the next several contractions, the patient pushed and delivered a live female infant. The head was delivered followed by the shoulders and remainder of the body. A nuchal cord x1 was reduced after delivery of body. The infant was placed on maternal abdomen. After approximately 60 seconds, the cord was clamped and cut. Cord blood was obtained. The perineum was inspected. No lacerations were noted. The placenta did not deliver spontaneously and therefore manual extraction of the placenta was performed. The placenta appeared to be intact without any missing cotyledons or membranes. The fundus was firm below the umbilicus with minimal bleeding. The patient and tolerated the delivery well. [id number] / MODL /[id number] SANDOR
[2020-06-18] MEDS ORDERED: ePHEDrine 50 MG/ML SDV ONE (07:14)
[2020-06-18] MEDS ORDERED: Levothyroxine 50 MCG Tab PO SCH (07:30)
[2020-06-18] MEDS ORDERED: Acetaminophen/Butalbital/Caffeine 325-50-40 MG Tab PO PRN (07:31)
--- NOTE | 2020-06-18 07:31 | PCM.PNPP ---
- General Info Date of Service: 06/18/20 Functional Status: Reports: Pain Controlled, Tolerating Diet, Ambulating, Urinating - Review of Systems General: Reports: No Symptoms HEENT: Reports: Headaches Pulmonary: Reports: No Symptoms Cardiovascular: Reports: No Symptoms Gastrointestinal: Reports: No Symptoms Genitourinary: Reports: No Symptoms Musculoskeletal: Reports: No Symptoms Skin: Reports: No Symptoms Neurological: Reports: No Symptoms Psychiatric: Reports: No Symptoms - Patient Data Vital Signs - Most Recent: Last Vital Signs Temp 36.9 C 06/18/20 04:01 Pulse 74 06/18/20 04:01 Resp 16 06/18/20 04:01 BP 139/73 06/18/20 04:01 Pulse Ox 96 06/18/20 04:01 Weight - Most Recent: 108.409 kg Lab Results - Last 24 Hours: Laboratory Results - last 24 hr 06/18/20 Range/Units 05:40 Hgb 11.9 L (12.0-16.0) g/dL Hct 35.6 L (36.0-46.0) % Med Orders - Current: Current Medications Acetaminophen (Tylenol Extra Strength) 1,000 mg PO Q6H PRN PRN Reason: Pain Benzocaine/Menthol (Dermoplast Pain Relief 20%-0.5% [place]) 78 gm TOP ASDIRECTED PRN PRN Reason: Perineal Comfort Measure Bisacodyl (Dulcolax) 10 mg RECTAL ONETIME PRN PRN Reason: Constipation Butorphanol Tartrate (Stadol) 1 mg IVPUSH Q1H PRN PRN Reason: Pain Carboprost Tromethamine (Hemabate Ds) 250 mcg IM ASDIRECTED PRN PRN Reason: Post Hemorrhage Docusate Sodium (Colace) 100 mg PO BID PRN PRN Reason: Constipation Emollient Ointment (Lansinoh Hpa) 0 gm TOP ASDIRECTED PRN PRN Reason: Sore Nipples Escitalopram Oxalate (Lexapro) 5 mg PO DAILY [facility] Oxytocin/Sodium Chloride (Oxytocin 30 Unit/500 Ml-Ns) 30 unit in 500 mls @ 500 mls/hr IV TITRATE [facility] Tranexamic Acid 1,000 mg/ (Sodium Chloride) 110 mls @ 660 mls/hr IV ONETIME PRN PRN Reason: Bleeding Lactated Ringer's (Ringers, Lactated) 1,000 mls @ 150 mls/hr IV ASDIRECTED [facility] Last Admin: 06/17/20 18:53 Dose: 150 mls/hr Documented by: Oxytocin/Sodium Chloride (Oxytocin 30 Unit/500 Ml-Ns) 30 unit in 500 mls @ 2 mls/hr IV TITRATE [facility]; Protocol Last Titration: 06/17/20 17:45 Dose: 20 munits/min, 20 mls/hr Documented by: Ampicillin Sodium 1 gm/ Sodium (Chloride) 50 mls @ 100 mls/hr IV Q4H [facility] Last Admin: 06/17/20 18:54 Dose: 100 mls/hr Documented by: Ibuprofen (Motrin) 800 mg PO Q8H PRN PRN Reason: Pain Last Admin: 06/18/20 06:29 Dose: 800 mg Documented by: Levothyroxine Sodium (Synthroid) 50 mcg PO ACBREAKFAST [facility] Lidocaine HCl (Xylocaine 1%) 50 ml INJECT ONETIME PRN PRN Reason: Laceration repair Methylergonovine Maleate (Methergine) 0.2 mg IM ASDIRECTED PRN PRN Reason: Post Hemorrhage Misoprostol (Cytotec) 200 mcg PO ONETIME PRN PRN Reason: Post Hemorrhage Nalbuphine HCl (Nubain) 10 mg IVPUSH Q1H PRN PRN Reason: Pain (severe 7-10) Oxycodone HCl (Oxycodone) 5 mg PO Q2H PRN PRN Reason: Pain Sodium Chloride (Saline Flush) 10 ml FLUSH ASDIRECTED PRN PRN Reason: Keep Vein Open Sodium Chloride (Saline Flush) 2.5 ml FLUSH ASDIRECTED PRN PRN Reason: Keep Vein Open Sodium Chloride (Normal Saline) 10 ml IV ASDIRECTED PRN PRN Reason: IV Use Sterile Water (Sterile Water For Irrigation) 1,000 ml IRR ASDIRECTED PRN PRN Reason: delivery Terbutaline Sulfate (Brethine) 0.25 mg SUBCUT ASDIRECTED PRN PRN Reason: Tacysystole Witch [place] (Tucks) 1 pad TOP ASDIRECTED PRN PRN Reason: comfort care Discontinued Medications Bupivacaine HCl (Sensorcaine-Mpf 0.25%) Confirm Administered Dose 10 ml .ROUTE .STK-MED ONE Stop: 06/17/20 20:36 Ephedrine Sulfate (Ephedrine Sulfate) Confirm Administered Dose 50 mg .ROUTE .STK-MED ONE Stop: 06/18/20 07:15 Ampicillin Sodium 2 gm/ Sodium (Chloride) 100 mls @ 200 mls/hr IV ONETIME ONE Stop: 06/17/20 06:20 Last Admin: 06/17/20 06:06 Dose: 200 mls/hr Documented by: Ropivacaine (Naropin 0.2%) Confirm Administered Dose 100 mls @ as directed .ROUTE .STK-MED ONE Stop: 06/17/20 19:38 Cefazolin Sodium/Dextrose 2 gm (/ Premix) 50 mls @ 100 mls/hr IV ONETIME ONE Stop: 06/17/20 22:57 Last Admin: 06/17/20 22:45 Dose: 100 mls/hr Documented by: Measles/Mumps/Rubella Vaccine Live (M-M-R Ii Vaccine) 0.5 ml SUBCUT .ONCE ONE Stop: 06/18/20 01:35 - Interaction Disposition, : [place] in Room with Family Interaction: Holding Feeding: Breastfed Infant; Nursed Well Support Person: - Recovery Exam Fundal Level: 2 Fingerbreadths Below Umbilicus Fundal Placement: Midline Lochia Amount: Scant Lochia Color: Rubra/Red Bladder Status: Voiding Urinary Elimination: Voided - Exam General: Alert, Oriented Neck: Supple Lungs: Normal Respiratory Effort GI/Abdominal Exam: Soft, Non-Tender Extremities: Non-Tender, No Pedal Edema Skin: Warm, Dry, Intact Neurological: No New Focal Deficit Psy/Mental Status: Alert, Normal Affect, Normal Mood - Problem List & Annotations (1) Vaginal delivery SNOMED Code(s): 247984793 Code(s): O80 - ENCOUNTER FOR FULL-TERM UNCOMPLICATED DELIVERY Status: Acute Current Visit: No - Problem List Review Problem List Initiated/Reviewed/Updated: Yes - My Orders Last 24 Hours: My Active Orders 06/17/20 Dinner Regular Diet [DIET] 06/17/20 22:26 Patient Status [ADT] Routine Cooling Warming Measures [RC] ASDIRECTED May Shower [RC] ASDIRECTED Notify Provider Vital Signs [RC] ASDIRECTED Up ad Radha [RC] ASDIRECTED Vital Signs [RC] PER UNIT ROUTINE Acetaminophen [Tylenol Extra Strength] 1,000 mg PO Q6H PRN Benzocaine/Menthol [Dermoplast Pain Relief 20%-0.5% [place]] 78 gm TOP ASDIRECTED PRN Docusate Sodium [Colace] 100 mg PO BID PRN Ibuprofen [Motrin] 800 mg PO Q8H PRN Lanolin [Lansinoh HPA] See Dose Instructions TOP ASDIRECTED PRN bisacodyL [Dulcolax] 10 mg RECTAL ONETIME PRN oxyCODONE 5 mg PO Q2H PRN witch [place] [Tucks] 1 pad TOP ASDIRECTED PRN Assess Lochia [WOMSER] Per Unit Routine Assess Uterine Involution [WOMSER] Per Unit Routine Breast Pump [WOMSER] Per Unit Routine Ice Therapy [OM.PC] Per Unit Routine Perineal Care [OM.PC] Per Unit Routine Peripheral IV Discontinue [OM.PC] Routine Sitz Bath [OM.PC] Per Unit Routine 06/18/20 01:34 Vaccines to be Administered [RC] PER UNIT ROUTINE 06/18/20 07:30 Levothyroxine [Synthroid] 50 mcg PO ACBREAKFAST 06/18/20 09:00 Escitalopram [Lexapro] 5 mg PO DAILY - Assessment Assessment:: 34yo s/p at 39w5d, PPD#1 - Plan Plan:: Desires discharge home at 24 hours if cleared by roof tile layer; reviewed discharge instructions/precautions.
[2020-06-18] MEDS ORDERED: Escitalopram 10 MG Tab PO SCH (09:00)
--- NOTE | 2020-06-18 09:36 | PCM48HPAN ---
Post Anesthesia Note - EVALUATION WITHIN 48HRS OF ANESTHETIC Vital Signs in Normal Range: Yes Patient Participated in Evaluation: Yes Respiratory Function Stable: Yes Airway Patent: Yes Cardiovascular Function Stable: Yes Hydration Status Stable: Yes Pain Control Satisfactory: No (having back pain still) Nausea and Vomiting Control Satisfactory: Yes Mental Status Recovered: Yes Vital Signs: Last Vital Signs Temp 36.9 C 06/18/20 04:01 Pulse 74 06/18/20 04:01 Resp 16 06/18/20 04:01 BP 139/73 06/18/20 04:01 Pulse Ox 96 06/18/20 04:01 - COMMENTS/OBSERVATIONS Free Text/Narrative:: Patient complains of continued back pain after epidural. States it was a difficult insertion. She also had some trouble breathing after it was inserted and bolused. States the OB nurses had to sit her up in bed to help her breath better.
[2020-06-19 03:31] VITALS: BP 130/82; PULSE 66
== END 2020-06-18 23:50 | disposition home or self-care (01) | DRG 807 ==
LOC: MW.OBCHECK 05:01 → MW.OB 05:02 → OBSVTOIN 22:02 → MW.OBCHECK 22:37 → MW.OB 06-18 07:23
PROVIDERS: ADMIT Obstetrics & Gynecology; ATTEND Obstetrics & Gynecology
PROC: 10E0XZZ Delivery of Products of Conception, External Approach (ICD-10-PCS; principal; 2020-06-17)
PROC: 10907ZC Drainage of Amniotic Fluid, Therapeutic from Products of Conception, Via Natural or Artificial Opening (ICD-10-PCS; 2020-06-17)
PROC: 3E033VJ Introduction of Other Hormone into Peripheral Vein, Percutaneous Approach (ICD-10-PCS; 2020-06-17)
PROC: 3E0234Z Introduction of Serum, Toxoid and Vaccine into Muscle, Percutaneous Approach (ICD-10-PCS; 2020-06-17)
PROC: 10D17Z9 Manual Extraction of Products of Conception, Retained, Via Natural or Artificial Opening (ICD-10-PCS; 2020-06-17)
DX: O99.284 Endocrine, nutritional and metabolic diseases complicating childbirth (principal); Z37.0 Single live birth; E03.9 Hypothyroidism, unspecified; Z3A.39 39 weeks gestation of pregnancy; O99.52 Diseases of the respiratory system complicating childbirth; J45.909 Unspecified asthma, uncomplicated; Z20.828 Contact with and (suspected) exposure to other viral communicable diseases; O99.214 Obesity complicating childbirth; E66.9 Obesity, unspecified; O99.62 Diseases of the digestive system complicating childbirth; K21.9 Gastro-esophageal reflux disease without esophagitis; O99.344 Other mental disorders complicating childbirth; F32.9 Major depressive disorder, single episode, unspecified; F41.9 Anxiety disorder, unspecified; O99.824 Streptococcus B carrier state complicating childbirth; O43.93 Unspecified placental disorder, third trimester; Z23 Encounter for immunization; Z79.890 Hormone replacement therapy; Z88.2 Allergy status to sulfonamides; Z88.8 Allergy status to other drugs, medicaments and biological substances
CPT/HCPCS: 36415; 51702; 59025; 59409; 85014; 85018; 85027; 86592; 86850; 86900; 86901; 90707; A9270-GY; J0290; J0690; J2590; J7050; J7120; U0002

== ENCOUNTER 2020-10-26 21:10 | Emergency (ER) | payer OTHER ==
[2020-10-26] MEDS ORDERED: Promethazine 25 MG/ML SDV IM ONE (21:48)
[2020-10-26 21:59] LABS: BLOOD UREA NITROGEN,BUN 16 mg/dL (7.0-18.0); CARBON DIOXIDE,CO2 23.8 mmol/L (21.0-32.0); CHLORIDE,CL 103 mmol/L (98-107); GLUCOSE RANDOM 132 mg/dL (74-106); POTASSIUM,K 3.7 mmol/L (3.5-5.1); SODIUM,NA 139 mmol/L (136-145)
[2020-10-26] MEDS ORDERED: Dextrose 5%-Lactated Ringers 1,000 ML IV SCH ×2 (22:00→22:45)
[2020-10-26] MEDS ORDERED: diphenhydrAMINE 50 MG/ML SDV IVPUSH ONE (22:32)
[2020-10-26] MEDS ORDERED: Ketorolac 30 MG/ML SDV IVPUSH ONE (23:07)
[2020-10-26] MEDS ORDERED: Ketorolac 15 MG/ML SDV IVPUSH STA (23:10)
[2020-10-26] MEDS ORDERED: Lactated Ringers 1,000 ML IV SCH (23:45)
[2020-10-27] MEDS ORDERED: Promethazine 12.5 MG Supp RECTAL ONE ×2 (00:33→00:34)
--- NOTE | 2020-10-27 00:37 | EDM.PDOC ---
ED HPI GENERAL MEDICAL PROBLEM - General Chief Complaint: Abdominal Pain Stated Complaint: VOMITTING, DIARRHEA, NAUSEA Time Seen by Provider: 10/26/20 21:35 - History of Present Illness INITIAL COMMENTS - FREE TEXT/NARRATIVE: CHIEF COMPLAINT(S): Vomiting HISTORY OF PRESENT ILLNESS: This is a 34-year-old woman with a past medical history of hypothyroidism who comes to the emergency department with a chief complaint of vomiting. The patient states that approximately 6 hours prior to arrival she had sudden onset vomiting. She states that this is nonbloody and nonbilious. She states that she was concerned that maybe she may have had food poisoning. She states that she ate the same thing is her coworkers and they are not having symptoms. She states that she did not initially have abdominal pain but now that she is vomiting she does have some epigastric abdominal pain. She denies any melena, hematochezia, hematemesis or bilious emesis. She denies any fevers or chills. She denies any pain with urination or vaginal bleeding or vaginal discharge. She denies any back pain. She denies any chest pain or shortness of breath. She denies any sick contacts. She states that she does have some pain in her right breast. She is currently breast-feeding a . She states that the pain is located under her breast and in the past when she had engorgement it was in the upper part of her breast. She denies any rash or redness. She denies any purulent drainage out of the nipple. She states that she has been pumping and feeding like normal even though she has been vomiting. She denies any other symptoms. REVIEW OF SYSTEMS: Constitutional: Denies fever, chills. Eyes: Denies eye pain Ears, Nose, Mouth, & Throat: Denies earache Chest: Positive for right breast pain Cardiovascular: Denies chest pain Respiratory: Denies shortness of breath Gastrointestinal: Positive for nausea and vomiting. Denies diarrhea, hematochezia, hematemesis, bilious emesis, melena Genitourinary: Denies hematuria vaginal bleeding, vaginal discharge Skin:Denies a rash Neurological: Denies blurred vision Psychiatric: Denies depression PAST MEDICAL HISTORY: As per history of present illness and as reviewed below otherwise noncontributory. SURGICAL HISTORY: As per history of present illness and as reviewed below otherwise noncontributory. SOCIAL HISTORY: As per history of present illness and as reviewed below other lux noncontributory. FAMILY HISTORY: As per history of present illness and as reviewed below otherwise noncontributory. EXAMINATION OF ORGAN SYSTEMS/BODY AREAS: Constitutional: Blood pressure is 109/58, heart rate 87, respiratory rate 16 with an oxygen saturation of 97% on room air. Temperature 37.8 General: Young woman who does not appear to be in acute distress but does not appear like she feels well Psychiatric: Appropriate mood and affect. Eyes: No scleral icterus or conjunctival erythema ENMT: Dry mucous membranes. No pharyngeal erythema. Breast: Breast examination was performed with YAO Wright in presence. The patient does not have any redness of the breast. There is some tenderness to palpation along the inferior breast. There is no fluctuance or obvious evidence of abscess. Cardiovascular: Regular, rate, and rhythm. No gallops, murmurs, or rubs. Bilateral upper extremity pulses symmetric and intact. No peripheral edema. No JVD. Respiratory: Lungs clear to auscultation bilaterally. No wheezes, rales, or rhonchi. Gastrointestinal: Soft, non-tender, non-distended. Normoactive bowel sounds Genitourinary: No suprapubic tenderness no CVA tenderness Musculoskeletal: Normal range of motion. Skin: No lesions or abrasions. Neurological: Alert, GCS 15 MEDICAL DECISION MAKING AND COURSE IN THE ED WITH INTERPRETATION/REVIEW OF DIAGNOSTIC STUDIES: This is a 34-year-old woman with a past medical history of hypothyroidism who comes to the emergency department with acute onset of vomiting which is nonbloody and nonbilious who appears dehydrated with normal vital signs. At this time the patient stated that she has had this in the past and they did not find a cause for it. She stated that at that time she tried multiple different nausea medications while in the emergency department but does not recall which ones helped. We will provide the patient with Phenergan and Benadryl. We will provide the patient with D5 lactated Ringer's for fluid resus citation. Will obtain labs including CBC, CMP, urinalysis and urine hCG. We will reevaluate the patient for improvement. Laboratory: CBC is unremarkable. CMP reveals hyperglycemia at 132 otherwise unremarkable. Urinalysis was a clean catch and was negative for leukocyte esterase, negative for nitrites, and negative for blood. Interpretation: Negative The patient was provided with 2 additional D5 lactated Ringer's boluses. The patient did report improvement and was able to tolerate p.o. At this time I did discuss with her that she would be stable for discharge. I discussed with her that she can use Phenergan as needed for nausea. I discussed that regarding the right breast that she should continue with breast-feeding and pumping and this is likely secondary to engorgement however she is to return to the emergency department for any new or worsening symptoms. She was amenable to discharge at this time and had no further questions DISPOSITION: The patient was discharged home in stable condition. The patient will follow up with primary care physician or director medicare sales as needed CONDITION: Fair PROCEDURES: None FINAL IMPRESSION(S)/DIAGNOSES: 1. Acute vomiting, unknown etiology 2. Acute right breast pain likely secondary to breast engorgement Toi Colunga M.D. Right Breast Pain Score (Numeric/FACES): 3 - Related Data Allergies Allergy/AdvReac Type Severity Reaction Status Date / Time Anesthetics - Tsering Type- Allergy Bradycardia Verified 10/26/20 21:34 Parabens [Anesthetics - Tsering Type] sulfamethoxazole Allergy Vomiting Verified 10/26/20 21:34 [From Bactrim] trimethoprim [From Bactrim] Allergy Vomiting Verified 10/26/20 21:34 molds Allergy Shortness Uncoded 10/26/20 21:34 of Breath Home Meds: Home Meds Levothyroxine [Synthroid] 50 mcg PO ACBREAKFAST 04/09/16 [History] Escitalopram Oxalate [Lexapro] 5 mg PO DAILY 08/17/18 [History] Past Medical History HEENT History: Reports: Impaired Vision, Other (See Below) Other HEENT History: scotopic sensitivity Cardiovascular History: Reports: None Respiratory History: Reports: Asthma Gastrointestinal History: Reports: GERD Genitourinary History: Reports: None [employer] TE[employer]ER History: Reports: Ectopic , , Spontaneous Other [employer]IGH [employer]HE[employer] TE[employer]ER History: Invitro- fertilization Musculoskeletal History: Reports: None Neurological History: Reports: None Psychiatric History: Reports: None Endocrine/Metabolic History: Reports: Hypothyroidism, Obesity/BMI 30+ Hematologic History: Reports: None Immunologic History: Reports: None Oncologic (Cancer) History: Reports: None Dermatologic History: Reports: None - Infectious Disease History Infectious Disease History: Reports: Chicken Pox - Past Surgical History Head Surgeries/Procedures: Reports: None HEENT Surgical History: Reports: Adenoidectomy, Myringotomy w Tube(s), Tonsillectomy Cardiovascular Surgical History: Reports: None Respiratory Surgical History: Reports: Other (See Below) Other Respiratory Surgeries/Procedures: Bronchoscopy GI Surgical History: Reports: None Endocrine Surgical History: Reports: None Musculoskeletal Surgical History: Reports: Arthroscopic Knee Other Musculoskeletal Surgeries/Procedures:: Bilateral Knee - History Comment History Comment: etoh "minimal" none during Social & Family History - Family History Family Medical History: No Pertinent Family History Endocrine/Metabolic: Reports: Diabetes, type II Oncologic: Reports: Colon - Tobacco Use Tobacco Use Status *Q: Never Tobacco User - Caffeine Use Caffeine Use: Reports: None - Recreational Drug Use Recreational Drug Use: No ED ROS GENERAL - Review of Systems Review Of Systems: See Below ED EXAM, GI/ABD - Physical Exam Exam: See Below Course - Vital Signs Last Recorded V/S: Last Vital Signs Temp 37.7 C 10/27/20 00:49 Pulse 95 10/27/20 00:49 Resp 16 10/27/20 00:49 BP 109/59 L 10/27/20 00:49 Pulse Ox 99 10/27/20 00:49 - Orders/Labs/Meds Labs: Laboratory Tests 10/26/20 10/26/20 10/26/20 Range/Units 21:30 21:30 23:57 WBC 8.68 (4.0-11.0) K/uL RBC 4.69 (4.30-5.90) M/uL Hgb 14.1 (12.0-16.0) g/dL Hct 42.2 (36.0-46.0) % MCV 90.0 (80.0-98.0) fL MCH 30.1 (27.0-32.0) pg MCHC 33.4 (31.0-37.0) g/dL RDW Std Deviation 42.4 (28.0-62.0) fl RDW Coeff of Alexx 13 (11.0-15.0) % Plt Count 352 (150-400) K/uL MPV 10.90 (7.40-12.00) fL Neut % (Auto) 87.6 H (48.0-80.0) % Lymph % (Auto) 7.9 L (16.0-40.0) % [place] % (Auto) 3.7 (0.0-15.0) % Eos % (Auto) 0.7 (0.0-7.0) % Baso % (Auto) 0.1 (0.0-1.5) % Neut # (Auto) 7.6 H (1.4-5.7) K/uL Lymph # (Auto) 0.7 (0.6-2.4) K/uL [place] # (Auto) 0.3 (0.0-0.8) K/uL Eos # (Auto) 0.1 (0.0-0.7) K/uL Baso # (Auto) 0.0 (0.0-0.1) K/uL Nucleated RBC % 0.0 /100WBC Nucleated RBCs # 0 K/uL Sodium 139 (136-145) mmol/L Potassium 3.7 (3.5-5.1) mmol/L Chloride 103 (98-107) mmol/L Carbon Dioxide 23.8 (21.0-32.0) mmol/L BUN 16 (7.0-18.0) mg/dL Creatinine 1.0 (0.6-1.0) mg/dL Est Cr Clr Drug Dosing 85.08 mL/min Estimated GFR (MDRD) > 60.0 ml/min Glucose 132 H (74-106) mg/dL Calcium 9.6 (8.5-10.1) mg/dL Total Bilirubin 0.5 (0.2-1.0) mg/dL AST 13 L (15-37) IU/L ALT 51 (14-63) IU/L Alkaline Phosphatase 89 (46-116) U/L Total Protein 8.5 H (6.4-8.2) g/dL Albumin 4.0 (3.4-5.0) g/dL Globulin 4.5 H (2.6-4.0) g/dL Albumin/Globulin Ratio 0.9 (0.9-1.6) Urine Color YELLOW Urine Appearance CLEAR Urine pH 7.0 (5.0-8.0) Ur Specific Only 1.015 (1.001-1.035) Urine Protein NEGATIVE (NEGATIVE) mg/dL Urine Glucose (UA) 500 H (NEGATIVE) mg/dL Urine Ketones NEGATIVE (NEGATIVE) mg/dL Urine Occult Blood NEGATIVE (NEGATIVE) Urine Nitrite NEGATIVE (NEGATIVE) Urine Bilirubin NEGATIVE (NEGATIVE) Urine Urobilinogen 0.2 (<2.0) EU/dL Ur Leukocyte Esterase NEGATIVE (NEGATIVE) Urine HCG, Qual (NEGATIVE) 10/26/20 Range/Units 23:57 WBC (4.0-11.0) K/uL RBC (4.30-5.90) M/uL Hgb (12.0-16.0) g/dL Hct (36.0-46.0) % MCV (80.0-98.0) fL MCH (27.0-32.0) pg MCHC (31.0-37.0) g/dL RDW Std Deviation (28.0-62.0) fl RDW Coeff of Alexx (11.0-15.0) % Plt Count (150-400) K/uL MPV (7.40-12.00) fL Neut % (Auto) (48.0-80.0) % Lymph % (Auto) (16.0-40.0) % [place] % (Auto) (0.0-15.0) % Eos % (Auto) (0.0-7.0) % Baso % (Auto) (0.0-1.5) % Neut # (Auto) (1.4-5.7) K/uL Lymph # (Auto) (0.6-2.4) K/uL [place] # (Auto) (0.0-0.8) K/uL Eos # (Auto) (0.0-0.7) K/uL Baso # (Auto) (0.0-0.1) K/uL Nucleated RBC % /100WBC Nucleated RBCs # K/uL Sodium (136-145) mmol/L Potassium (3.5-5.1) mmol/L Chloride (98-107) mmol/L Carbon Dioxide (21.0-32.0) mmol/L BUN (7.0-18.0) mg/dL Creatinine (0.6-1.0) mg/dL Est Cr Clr Drug Dosing mL/min Estimated GFR (MDRD) ml/min Glucose (74-106) mg/dL Calcium (8.5-10.1) mg/dL Total Bilirubin (0.2-1.0) mg/dL AST (15-37) IU/L ALT (14-63) IU/L Alkaline Phosphatase (46-116) U/L Total Protein (6.4-8.2) g/dL Albumin (3.4-5.0) g/dL Globulin (2.6-4.0) g/dL Albumin/Globulin Ratio (0.9-1.6) Urine Color Urine Appearance Urine pH (5.0-8.0) Ur Specific Only (1.001-1.035) Urine Protein (NEGATIVE) mg/dL Urine Glucose (UA) (NEGATIVE) mg/dL Urine Ketones (NEGATIVE) mg/dL Urine Occult Blood (NEGATIVE) Urine Nitrite (NEGATIVE) Urine Bilirubin (NEGATIVE) Urine Urobilinogen (<2.0) EU/dL Ur Leukocyte Esterase (NEGATIVE) Urine HCG, Qual NEGATIVE (NEGATIVE) Meds: Medications Discontinued Medications Generic Name Dose Route Start Last Admin Trade Name Freq PRN Reason Stop Dose Admin Diphenhydramine HCl 25 mg 10/26/20 22:32 10/26/20 22:49 Benadryl IVPUSH 10/26/20 22:33 25 mg ONETIME ONE Administration Dextrose/Lactated Ringer's 1,000 mls @ 999 mls/hr 10/26/20 22:00 10/26/20 21:56 Dextrose 5%-Lactated Ringers IV 999 mls/hr ASDIRECTED JEWELL Administration Dextrose/Lactated Ringer's 1,000 mls @ 999 mls/hr 10/26/20 22:45 10/26/20 22:55 Dextrose 5%-Lactated Ringers IV 999 mls/hr ASDIRECTED JEWELL Administration Lactated Ringer's 1,000 mls @ 999 mls/hr 10/26/20 23:45 10/27/20 00:14 Ringers, Lactated IV 999 mls/hr ASDIRECTED JEWELL Administration Ketorolac Tromethamine 15 mg 10/26/20 23:07 10/26/20 23:14 Toradol IVPUSH 10/26/20 23:08 Not Given ONETIME ONE Ketorolac Tromethamine 15 mg 10/26/20 23:10 10/26/20 23:23 Toradol IVPUSH 10/26/20 23:11 15 mg NOW STA Administration Promethazine HCl 12.5 mg 10/26/20 21:48 10/26/20 21:55 Phenergan IM 10/26/20 21:49 12.5 mg ONETIME ONE Administration Promethazine HCl 12.5 mg 10/27/20 00:33 10/27/20 00:49 Phenadoz RECTAL 10/27/20 00:34 12.5 mg ONETIME ONE Administration Promethazine HCl 12.5 mg 10/27/20 00:34 10/27/20 00:49 Phenadoz RECTAL 10/27/20 00:35 12.5 mg ONETIME ONE Administration Departure - Departure Time of Disposition: 00:34 Disposition: Home, Self-Care 01 Condition: Fair Clinical Impression: Vomiting Qualifiers: Vomiting type: unspecified Vomiting Intractability: unspecified Nausea presence: with nausea Qualified Code(s): R11.2 - Nausea with vomiting, unspecified - Discharge Information *PRESCRIPTION DRUG MONITORING PROGRAM REVIEWED*: No *COPY OF PRESCRIPTION DRUG MONITORING REPORT IN PATIENT IONA: No Instructions: Nausea and Vomiting, Adult, [id number] Referrals: Jossue Bland MD [Primary Care Provider] - Forms: ED Department Discharge Additional Instructions: Your evaluated today on an emergent basis. At this time your labs were normal. Does uncertain as to what is causing your vomiting however it you have seemed to improved and you are able to tolerate fluids. I would use Phenergan as needed for nausea and vomiting every 6 hours as needed. We did provide you with 2 tablets. If you have any worsening pain or you are not able to tolerate any fluids or food please return to the emergency department. In regards to your right breast pain this could be secondary to breast engorgement. Feeding and pumping other treatment for this. However if you start to experience any redness of your breast or pus drainage out of your nipple please return to the emergency department, your primary care physician or your director medicare sales. [facility] [address] [place] [id number] [facility] [address] [place] [address] [facility] [address] [place] [address] [facility] [address] [address] The patient is informed of any results of their evaluation and diagnostic workup and all questions are answered. They are given discharge instructions and return precautions. The patient is stable for discharge. The patient states they understand and agree with the plan and that they will return if their symptoms get worse or if they have any new concerns. The following information is given to patients seen in the emergency department who are being discharged to home. This information is to outline your options for follow-up care. We provide all patients seen in our emergency department with a follow-up referral. The need for follow-up, as well as the timing and circumstances, are variable depending upon the specifics of your emergency department visit. If you don't have a primary care physician on staff, we will provide you with a referral. We always advise you to contact your personal physician following an emergency department visit to inform them of the circumstance of the visit and for follow-up with them and/or the need for any referrals to a consulting specialist. The emergency department will also refer you to a specialist when appropriate. This referral assures that you have the opportunity for follow-up care with a specialist. All of these measure are taken in an effort to provide you with optimal care, which includes your follow-up. Under all circumstances we always encourage you to contact your private physician who remains a resource for coordinating your care. When calling for follow-up care, please make the office aware that this follow-up is from your recent emergency room visit. If for any reason you are refused follow-up, please contact the [facility] Emergency Department at and asked to speak to the emergency department charge nurse. Sepsis Event Note (ED) - Evaluation Sepsis Screening Result: No Definite Risk - Focused Exam Vital Signs: Vital Signs Temp Temp Pulse Resp BP Pulse Ox 10/27/20 00:49 37.7 C 95 16 109/59 L 99 10/26/20 21:30 37.8 C 87 16 109/58 L 97
[2020-10-27 00:51] VITALS: BP 109/59; PULSE 95
--- NOTE | 2020-10-28 12:02 | PCM.SN.2 ---
- Free Text/Narrative Note: Contacted patient to follow up. The patient stated that she did start to develop some redness on her right breast and some fever so she went and saw her OB today who diagnosed her with early mastitis and started her on some antibiotics. She stated that she has not had any further vomiting and has been tolerating PO but she has had some continued diarrhea which is watery. I discussed with her that this may be due to a viral gastroeneteritis given that she is having continued diarrhea >24 hours after her symptoms started and that it is going to be important to maintain hydration with fluids and soups. I also encouraged her to take probiotics as she will likely have some worsening of her diarrhea given she is now going to be taking antibiotics. I also encouraged her to continue to breastfeed and pump with the right breast as she normally does and to return to ED if she had any worsening of her symptoms. She did express understanding and had no further questions.
== END 2020-10-27 00:50 | disposition home or self-care (01) ==
LOC: MW.ED 21:10
DX: R11.2 Nausea with vomiting, unspecified (principal); N64.4 Mastodynia; E03.9 Hypothyroidism, unspecified; E66.9 Obesity, unspecified; J45.909 Unspecified asthma, uncomplicated; Z68.29 Body mass index [BMI] 29.0-29.9, adult; Z88.4 Allergy status to anesthetic agent; Z88.2 Allergy status to sulfonamides; Z91.048 Other nonmedicinal substance allergy status
CPT/HCPCS: 36415; 80053; 81003; 81025; 85025; 96372; 96374; 96375; 99284; A9270; J1200; J1885; J2550; J7120; J7121; 99282

== ENCOUNTER 2021-04-07 09:07 | Emergency (ER) | payer BC, OTHER ==
[2021-04-07] MEDS ORDERED: Sodium Chloride 0.9% 10 ML Syringe FLUSH PRN (09:13)
[2021-04-07] MEDS ORDERED: Sodium Chloride 0.9% 2.5 ML Syringe FLUSH PRN (09:13)
[2021-04-07] MEDS ORDERED: Sodium Chloride 0.9% 1,000 ML IV ONE (09:14)
--- NOTE | 2021-04-07 09:24 | EDM.PDOC ---
ED HPI GENERAL MEDICAL PROBLEM - General Chief Complaint: Gastrointestinal Problem Stated Complaint: VOMITING/DIARRHEA/FEVER Time Seen by Provider: 04/07/21 09:12 - History of Present Illness INITIAL COMMENTS - FREE TEXT/NARRATIVE: History of present illness: [] Patient began to have nausea and vomiting at 12:32 AM. She has epigastric pain its moderate. She has been vomiting so much that she feels like it has trouble to get a deep breath. She has had 8 mg total of Zofran. She is currently breast-feeding. Review of systems: As per history of present illness and below otherwise all systems reviewed and negative. Past medical history: As per history of present illness and as reviewed below otherwise noncontributory. Surgical history: As per history of present illness and as reviewed below otherwise noncontributo ry. Social history: No reported history of drug or alcohol abuse. Family history: As per history of present illness and as reviewed below otherwise noncontributory. Physical exam: Constitutional - well developed, well-nourished and in no acute distress HEENT - normocephalic, no evidence of trauma - external nose and mouth normal - no mass in neck and no JVD - mucosae moist EYES - full EOM, PERRL, no icterus - no evidence of inflammation, injection, or drainage Respiratory - no respiratory distress, equal bilateral expansion, lungs clear to auscultation and no abnormal lung sounds Cardiovascular - Regular Rhythm with S1 and S2 appreciated and no murmur, gallop or rub. GI - abdomen soft without distension or organomegaly - normal bowel sounds - no guard or rebound Musculoskeletal no gross deformity of long bones or joints - no tenderness, swelling or edema Neurologic - Alert and oriented times four - CN II-XII grossly intact - motor sensory and coordination symmetrically normal Psychiatric - appropriate mood and affect with normal thought content Hematologic - No petechiae or purpura - mucosa appropriate color and sclera not pale - normal nail bed color and refill Integument - no rash or evidence of trauma - normal turgor Diagnostics: [] Therapeutics: [] Impression: [] Plan: [] Definitive disposition and diagnosis as appropriate pending reevaluation and review of above. - Related Data Allergies Allergy/AdvReac Type Severity Reaction Status Date / Time Anesthetics - Tsering Type- Allergy Bradycardia Verified 04/07/21 09:18 Parabens [Anesthetics - Tsering Type] sulfamethoxazole Allergy Vomiting Verified 04/07/21 09:18 [From Bactrim] trimethoprim [From Bactrim] Allergy Vomiting Verified 04/07/21 09:18 molds Allergy Shortness Uncoded 04/07/21 09:18 of Breath Home Meds: Home Meds Levothyroxine [Synthroid] 50 mcg PO ACBREAKFAST 04/09/16 [History] Escitalopram Oxalate [Lexapro] 5 mg PO DAILY 08/17/18 [History] Ondansetron [Zofran ODT] 4 mg PO Q6H PRN #12 tab.dis 04/07/21 [Rx] Past Medical History HEENT History: Reports: Impaired Vision, Other (See Below) Other HEENT History: scotopic sensitivity Cardiovascular History: Reports: None Respiratory History: Reports: Asthma Gastrointestinal History: Reports: GERD Genitourinary History: Reports: None LEGAL BILLING COORDINATOR History: Reports: Ectopic , , Spontaneous Other LEGAL BILLING COORDINATOR History: Invitro- fertilization Musculoskeletal History: Reports: None Neurological History: Reports: None Psychiatric History: Reports: None Endocrine/Metabolic History: Reports: Hypothyroidism, Obesity/BMI 30+ Hematologic History: Reports: None Immunologic History: Reports: None Oncologic (Cancer) History: Reports: None Dermatologic History: Reports: None - Infectious Disease History Infectious Disease History: Reports: Chicken Pox - Past Surgical History Head Surgeries/Procedures: Reports: None HEENT Surgical History: Reports: Adenoidectomy, Myringotomy w Tube(s), Tonsillectomy Cardiovascular Surgical History: Reports: None Respiratory Surgical History: Reports: Other (See Below) Other Respiratory Surgeries/Procedures: Bronchoscopy GI Surgical History: Reports: None Endocrine Surgical History: Reports: None Musculoskeletal Surgical History: Reports: Arthroscopic Knee Other Musculoskeletal Surgeries/Procedures:: Bilateral Knee - History Comment History Comment: etoh "minimal" none during Social & Family History - Family History Family Medical History: No Pertinent Family History Endocrine/Metabolic: Reports: Diabetes, type II Oncologic: Reports: Colon - Tobacco Use Tobacco Use Status *Q: Never Tobacco User - Caffeine Use Caffeine Use: Reports: None - Recreational Drug Use Recreational Drug Use: No ED ROS GENERAL - Review of Systems Review Of Systems: Comprehensive ROS is negative, except as noted in HPI. ED EXAM, GENERAL - Physical Exam Exam: See Below Free Text/Narrative:: My physical exam is in the HPI Course - Vital Signs Text/Narrative:: 12:05 PM patient feels better and took p.o. and kept it down. Last Recorded V/S: Last Vital Signs Temp 36.3 C 04/07/21 09:16 Pulse 87 04/07/21 09:16 Resp 16 04/07/21 09:16 BP 128/67 04/07/21 09:16 Pulse Ox 99 04/07/21 09:16 - Orders/Labs/Meds Orders: Active Orders 24 hr Category Date Time Status Sodium Chloride 0.9% [Saline Flush] Med 04/07/21 09:13 Active 10 ml FLUSH ASDIRECTED PRN Sodium Chloride 0.9% [Saline Flush] Med 04/07/21 09:13 Active 2.5 ml FLUSH ASDIRECTED PRN Saline Lock Insert [OM.PC] Stat Oth 04/07/21 09:13 Ordered Medication Orders Sodium Chloride (Sodium Chloride 0.9% 10 Ml Syringe) 10 ml FLUSH ASDIRECTED PRN PRN Reason: Keep Vein Open Last Admin: 04/07/21 09:32 Dose: 10 ml Documented by: NICOLE Sodium Chloride (Sodium Chloride 0.9% 2.5 Ml Syringe) 2.5 ml FLUSH ASDIRECTED PRN PRN Reason: Keep Vein Open Last Admin: 04/07/21 09:32 Dose: 2.5 ml Documented by: NICOLE Labs: Laboratory Tests 04/07/21 04/07/21 04/07/21 Range/Units 09:39 09:39 11:41 WBC 10.06 (4.0-11.0) K/uL RBC 4.50 (4.30-5.90) M/uL Hgb 13.5 (12.0-16.0) g/dL Hct 40.4 (36.0-46.0) % MCV 89.8 (80.0-98.0) fL MCH 30.0 (27.0-32.0) pg MCHC 33.4 (31.0-37.0) g/dL RDW Std Deviation 45.4 (28.0-62.0) fl RDW Coeff of Alexx 14 (11.0-15.0) % Plt Count 323 (150-400) K/uL MPV 10.30 (7.40-12.00) fL Neut % (Auto) 90.1 H (48.0-80.0) % Lymph % (Auto) 6.4 L (16.0-40.0) % Nelson % (Auto) 3.2 (0.0-15.0) % Eos % (Auto) 0.2 (0.0-7.0) % Baso % (Auto) 0.1 (0.0-1.5) % Neut # (Auto) 9.1 H (1.4-5.7) K/uL Lymph # (Auto) 0.6 (0.6-2.4) K/uL Nelson # (Auto) 0.3 (0.0-0.8) K/uL Eos # (Auto) 0.0 (0.0-0.7) K/uL Baso # (Auto) 0.0 (0.0-0.1) K/uL Nucleated RBC % 0.0 /100WBC Nucleated RBCs # 0 K/uL Sodium 140 (136-145) mmol/L Potassium 3.8 (3.5-5.1) mmol/L Chloride 105 (98-107) mmol/L Carbon Dioxide 25.5 (21.0-32.0) mmol/L BUN 12 (7.0-18.0) mg/dL Creatinine 1.0 (0.6-1.0) mg/dL Est Cr Clr Drug Dosing 82.84 mL/min Estimated GFR (MDRD) > 60.0 ml/min Glucose 141 H (74-106) mg/dL Calcium 9.2 (8.5-10.1) mg/dL Total Bilirubin 0.4 (0.2-1.0) mg/dL AST 16 (15-37) IU/L ALT 44 (14-63) IU/L Alkaline Phosphatase 83 (46-116) U/L Total Protein 7.9 (6.4-8.2) g/dL Albumin 4.0 (3.4-5.0) g/dL Globulin 3.9 (2.6-4.0) g/dL Albumin/Globulin Ratio 1.0 (0.9-1.6) Lipase 124 (73-393) U/L Urine Color YELLOW Urine Appearance CLEAR Urine pH 7.0 (5.0-8.0) Ur Specific [place] 1.020 (1.001-1.035) Urine Protein NEGATIVE (NEGATIVE) mg/dL Urine Glucose (UA) NEGATIVE (NEGATIVE) mg/dL Urine Ketones NEGATIVE (NEGATIVE) mg/dL Urine Occult Blood NEGATIVE (NEGATIVE) Urine Nitrite NEGATIVE (NEGATIVE) Urine Bilirubin NEGATIVE (NEGATIVE) Urine Urobilinogen 0.2 (<2.0) EU/dL Ur Leukocyte Esterase NEGATIVE (NEGATIVE) Meds: Medications Generic Name Dose Route Start Last Admin Trade Name Freq PRN Reason Stop Dose Admin Sodium Chloride 10 ml 04/07/21 09:13 04/07/21 09:32 Sodium Chloride 0.9% 10 Ml Syringe FLUSH 10 ml ASDIRECTED PRN Administration Keep Vein Open Sodium Chloride 2.5 ml 04/07/21 09:13 04/07/21 09:32 Sodium Chloride 0.9% 2.5 Ml Syringe FLUSH 2.5 ml ASDIRECTED PRN Administration Keep Vein Open Discontinued Medications Generic Name Dose Route Start Last Admin Trade Name Freq PRN Reason Stop Dose Admin Sodium Chloride 1,000 mls @ 1,000 mls/hr 04/07/21 09:14 04/07/21 09:32 Normal Saline IV 04/07/21 10:13 1,000 mls/hr .Bolus ONE Administration Lactated Ringer's 1,000 mls @ 1,000 mls/hr 04/07/21 10:15 04/07/21 10:17 Ringers, Lactated IV 04/07/21 11:14 1,000 mls/hr .BOLUS ONE Administration Departure - Departure Time of Disposition: 12:05 Disposition: Home, Self-Care 01 Condition: Good Clinical Impression: Gastritis Vomiting Qualifiers: Vomiting type: unspecified Vomiting Intractability: unspecified Nausea presence: with nausea Qualified Code(s): R11.2 - Nausea with vomiting, unspecified - Discharge Information Prescriptions: Ondansetron [Zofran ODT] 4 mg PO Q6H PRN #12 tab.dis PRN Reason: Nausea/Vomiting Instructions: Gastritis, Adult, [id number], Nausea and Vomiting, Adult Referrals: Jossue Bland MD [Primary Care Provider] - Forms: ED Department Discharge Additional Instructions: [facility] - [facility] [address] [place] [id number] [facility] [address] [place] [id number] The following information is given to patients seen in the emergency department who are being discharged to home. This information is to outline your options for follow-up care. We provide all patients seen in our emergency department with a follow-up referral. The need for follow-up, as well as the timing and circumstances, are variable depending upon the specifics of your emergency department visit. If you don't have a primary care physician on staff, we will provide you with a referral. We always advise you to contact your personal physician following an emergency department visit to inform them of the circumstance of the visit and for follow-up with them and/or the need for any referrals to a consulting specialist. The emergency department will also refer you to a specialist when appropriate. This referral assures that you have the opportunity for follow-up care with a specialist. All of these measure are taken in an effort to provide you with optimal care, which includes your follow-up. Under all circumstances we always encourage you to contact your private physician who remains a resource for coordinating your care. When calling for follow-up care, please make the office aware that this follow-up is from your recent emergency room visit. If for any reason you are refused follow-up, please contact the [facility] Emergency Department at and asked to speak to the emergency department charge nurse. Sepsis Event Note (ED) - Evaluation Sepsis Screening Result: No Definite Risk - Focused Exam Vital Signs: Vital Signs Temp Pulse Resp BP Pulse Ox 04/07/21 09:16 36.3 C 87 16 128/67 99 - My Orders Last 24 Hours: My Active Orders 04/07/21 09:13 Sodium Chloride 0.9% [Saline Flush] 10 ml FLUSH ASDIRECTED PRN Sodium Chloride 0.9% [Saline Flush] 2.5 ml FLUSH ASDIRECTED PRN Saline Lock Insert [OM.PC] Stat - Assessment/Plan Last 24 Hours: My Active Orders 04/07/21 09:13 Sodium Chloride 0.9% [Saline Flush] 10 ml FLUSH ASDIRECTED PRN Sodium Chloride 0.9% [Saline Flush] 2.5 ml FLUSH ASDIRECTED PRN Saline Lock Insert [OM.PC] Stat
[2021-04-07 10:11] LABS: BLOOD UREA NITROGEN,BUN 12 mg/dL (7.0-18.0); CARBON DIOXIDE,CO2 25.5 mmol/L (21.0-32.0); CHLORIDE,CL 105 mmol/L (98-107); GLUCOSE RANDOM 141 mg/dL (74-106); LIPASE 124 U/L (73-393); POTASSIUM,K 3.8 mmol/L (3.5-5.1); SODIUM,NA 140 mmol/L (136-145)
[2021-04-07] MEDS ORDERED: Lactated Ringers 1,000 ML IV ONE (10:15)
--- NOTE | 2021-04-07 10:32 | CR ---
Indication: Difficulty taking a deep breath Comparison: Two view chest February 07, 2019 Technique: Single AP view chest Findings: There is hyperinflation and chronic interstitial change. There are increased interstitial markings likely representing pulmonary edema without evidence of dense consolidation, effusion or pneumothorax. The cardiac silhouette is mildly prominent. The bony thorax is grossly intact. Impression: Hyperinflation and increased interstitial markings which may represent pulmonary edema versus bronchitis changes. Dictated by Liang Moser MD @ 04/07/2021 10:30:[address] Liang Moser @ Apr 07 2021 10:30AM
[2021-04-07 12:23] VITALS: BP 117/71; PULSE 86
== END 2021-04-07 12:24 | disposition home or self-care (01) ==
LOC: MW.ED 09:07
DX: K29.70 Gastritis, unspecified, without bleeding (principal); J45.909 Unspecified asthma, uncomplicated; E03.9 Hypothyroidism, unspecified; E66.9 Obesity, unspecified; Z68.30 Body mass index [BMI] 30.0-30.9, adult; Z88.4 Allergy status to anesthetic agent; Z88.2 Allergy status to sulfonamides; Z91.048 Other nonmedicinal substance allergy status; Z79.899 Other long term (current) drug therapy
CPT/HCPCS: 71045; 80053; 81003; 83690; 85025; 99284; J7030; J7120; 99283

== ENCOUNTER 2022-01-24 05:20 | Inpatient (IN) | payer BC ==
[2022-01-24] MEDS ORDERED: Methylergonovine 0.2 MG/1 ML Amp IM PRN (06:19)
[2022-01-24] MEDS ORDERED: Sodium Chloride 0.9% 20 ML SDV IV PRN (06:19)
[2022-01-24] MEDS ORDERED: Misoprostol 200 MCG Tab PO PRN (06:19)
[2022-01-24] MEDS ORDERED: Butorphanol 1 MG/ML SDV IVPUSH PRN (06:19)
[2022-01-24] MEDS ORDERED: Carboprost Tromethamine 250 MCG/1 ML Amp IM PRN (06:19)
[2022-01-24] MEDS ORDERED: Sodium Chloride 0.9% 10 ML Syringe FLUSH PRN (06:19)
[2022-01-24] MEDS ORDERED: Lidocaine 1% 50 ML MDV INJECT PRN (06:19)
[2022-01-24] MEDS ORDERED: Sodium Chloride 0.9% 2.5 ML Syringe FLUSH PRN (06:19)
[2022-01-24] MEDS ORDERED: Tranexamic Acid 1,000 MG in Sodium Chloride 0.9% 100 ML IV PRN ×2 (06:19→18:04)
[2022-01-24] MEDS ORDERED: Ondansetron 4 MG/2 ML SDV IVPUSH PRN (06:19)
[2022-01-24] MEDS ORDERED: Water For Irrigation,Sterile 1,000 ML Container IRR PRN (06:19)
[2022-01-24] MEDS ORDERED: Terbutaline 1 MG/ML SDV SUBCUT PRN (06:24)
[2022-01-24] MEDS ORDERED: Oxytocin/0.9 % Sodium Chloride 30 UNIT/500 ML BAG IV SCH ×2 (06:30)
[2022-01-24] MEDS: Lactated Ringers 1,000 ML IV SCH ×3 (07:50→13:38)
[2022-01-24] MEDS ORDERED: ePHEDrine 50 MG/ML SDV IVPUSH PRN ×2 (09:16)
[2022-01-24] MEDS ORDERED: Ropivacaine 200 MG in Premix Bag 1 BAG EPIDUR SCH (09:30)
[2022-01-24] MEDS ORDERED: Lanolin 100% Cream 7 GM Tube TOP PRN (18:04)
[2022-01-24] MEDS ORDERED: Acetaminophen 500 MG Tab PO PRN (18:04)
[2022-01-24] MEDS ORDERED: Ibuprofen 400 MG Tab PO PRN (18:04)
[2022-01-24] MEDS ORDERED: Witch Hazel Medicated Pads 40/Jar TOP PRN (18:04)
[2022-01-24] MEDS ORDERED: Bisacodyl 10 MG Supp RECTAL PRN (18:04)
[2022-01-24] MEDS: Ibuprofen 800 MG Tab PO PRN (19:10)
[2022-01-24] MEDS: Acetaminophen 500 MG Tab PO PRN (21:54)
[2022-01-24] MEDS: Docusate Sodium 100 MG Cap PO PRN (21:54)
[2022-01-24] MEDS ORDERED: Benzocaine/Menthol 20%-0.5% Spray 78 GM Cannister TOP PRN (22:28)
[2022-01-25] MEDS: Ibuprofen 800 MG Tab PO PRN ×2 (02:39→08:38)
[2022-01-25] MEDS ORDERED: Levothyroxine 50 MCG Tab PO SCH (07:30)
[2022-01-25] MEDS: Docusate Sodium 100 MG Cap PO PRN (08:37)
[2022-01-25] MEDS ORDERED: Escitalopram 10 MG Tab PO SCH (09:00)
[2022-01-25] MEDS ORDERED: Ferrous Sulfate 325 MG Tab PO SCH (09:00)
[2022-01-25] MEDS ORDERED: Prenatal Multivitamin with Calcium/Folic Acid/Iron Tab PO SCH (09:00)
[2022-01-25] MEDS: Acetaminophen 500 MG Tab PO PRN (13:41)
[2022-01-25 16:56] VITALS: BP 120/70; PULSE 59
== END 2022-01-25 18:50 | disposition home or self-care (01) | DRG 560 ==
LOC: UNDOADMOB 05:20 → MW.OB 05:20 → OBSVTOIN 16:08 → UNDOADMOB 16:08 → MW.OB 16:08 → OBSVTOIN 18:04 → INTOOBSV 18:04 → MW.OB 19:52
PROVIDERS: ADMIT Obstetrics & Gynecology; ATTEND Obstetrics & Gynecology
PROC: 10E0XZZ Delivery of Products of Conception, External Approach (ICD-10-PCS; principal; 2022-01-24)
PROC: 10907ZC Drainage of Amniotic Fluid, Therapeutic from Products of Conception, Via Natural or Artificial Opening (ICD-10-PCS; 2022-01-24)
PROC: 3E033VJ Introduction of Other Hormone into Peripheral Vein, Percutaneous Approach (ICD-10-PCS; 2022-01-24)
PROC: 0KQM0ZZ Repair Perineum Muscle, Open Approach (ICD-10-PCS; 2022-01-24)
PROC: 3E0R3BZ Introduction of Anesthetic Agent into Spinal Canal, Percutaneous Approach (ICD-10-PCS; 2022-01-24)
PROC: 00HU33Z Insertion of Infusion Device into Spinal Canal, Percutaneous Approach (ICD-10-PCS; 2022-01-24)
DX: O69.81X0 Labor and delivery complicated by cord around neck, without compression, not applicable or unspecified (principal); Z37.0 Single live birth; O70.1 Second degree perineal laceration during delivery; O74.6 Other complications of spinal and epidural anesthesia during labor and delivery; R00.1 Bradycardia, unspecified; O99.62 Diseases of the digestive system complicating childbirth; K21.9 Gastro-esophageal reflux disease without esophagitis; O99.214 Obesity complicating childbirth; O99.284 Endocrine, nutritional and metabolic diseases complicating childbirth; E03.9 Hypothyroidism, unspecified; O16.4 Unspecified maternal hypertension, complicating childbirth; Z3A.39 39 weeks gestation of pregnancy
CPT/HCPCS: 01967; 36415; 51702; 59025; 59409; 82803; 85014; 85018; 85027; 86592; 86850; 86900; 86901; A9270-GY; J2405; J2590; J7120

== ENCOUNTER 2022-07-05 12:23 | Emergency (ER) | payer BC ==
[2022-07-05] MEDS ORDERED: Promethazine 25 MG/ML SDV IM ONE (13:55)
[2022-07-05] MEDS ORDERED: Sodium Chloride 0.9% 1,000 ML IV ONE ×2 (13:55)
[2022-07-05] MEDS ORDERED: Loperamide 2 MG Cap PO ONE (15:32)
== END 2022-07-05 15:20 ==
LOC: MW.ED 12:23
DX: R11.2 Nausea with vomiting, unspecified (principal); E03.9 Hypothyroidism, unspecified; Z91.048 Other nonmedicinal substance allergy status; Z88.4 Allergy status to anesthetic agent; Z79.899 Other long term (current) drug therapy
CPT/HCPCS: 96360; 96361; 96372; 99284; A9270; J2550; J7030

== ENCOUNTER 2022-09-06 10:04 | Day surgery (SDC) | payer BC ==
[~2022-09-06 10:04] MED LIST: Albuterol 0.083% 2.5 MG/3 ML Neb Soln NEB PRN; Clindamycin Phosphate in D5W 600 MG in Premix Bag 1 BAG IV SCH; Dexmedetomidine 200 MCG/2 ML SDV ONE; HYDROmorphone 1 MG/ML Syringe IVPUSH PRN; Lactated Ringers 1,000 ML IV SCH; Metoclopramide 10 MG/2 ML SDV IVPUSH PRN; Morphine 2 MG/ML SYRINGE IVPUSH PRN; Naloxone 0.4 MG/ML SDV IVPUSH PRN; Ondansetron 4 MG/2 ML SDV IVPUSH PRN; Propofol 200 MG/20 ML SDV ONE; Scopolamine 1.5 MG Transdermal Patch TOP ONE; Sodium Chloride 0.9% 10 ML Syringe FLUSH PRN; Sodium Chloride 0.9% 2.5 ML Syringe FLUSH PRN; Sodium Chloride 0.9% 20 ML SDV IV PRN; Water For Injection, Sterile 20 ML ONE; fentaNYL 100 MCG/2 ML SDV ONE; fentaNYL 50 MCG/ML SDV IVPUSH PRN
[2022-09-06] MEDS ORDERED: Ropivacaine 0.5% 5 MG/ML 30 ML SDV ONE (10:20)
[2022-09-06] MEDS ORDERED: Bupivacaine 0.5% 30 ML SDV ONE (10:29)
[2022-09-06] MEDS ORDERED: Glycopyrrolate 0.2 MG/ML SDV ONE (11:04)
[2022-09-06] MEDS ORDERED: Dexamethasone 4 MG/ML 5 ML MDV ONE (11:12)
[2022-09-06] MEDS ORDERED: Magnesium Sulfate (4.06 MEQ/ML) 5 GM/10 ML SDV ONE (11:12)
[2022-09-06] MEDS ORDERED: ePHEDrine 50 MG/ML SDV ONE (11:23)
[2022-09-06] MEDS ORDERED: Propofol 200 MG/20 ML SDV ONE (11:27)
[2022-09-06] MEDS ORDERED: Ondansetron 4 MG/2 ML SDV ONE (11:33)
[2022-09-06 14:38] VITALS: BP 112/59; PULSE 53
== END 2022-09-06 13:45 | disposition home or self-care (01) ==
LOC: MW.SDS 10:04
PROVIDERS: ATTEND Surgery
DX: K42.9 Umbilical hernia without obstruction or gangrene (principal); J45.909 Unspecified asthma, uncomplicated; G43.909 Migraine, unspecified, not intractable, without status migrainosus; E03.9 Hypothyroidism, unspecified; E66.3 Overweight; E53.8 Deficiency of other specified B group vitamins; F32.A Depression, unspecified; Z88.2 Allergy status to sulfonamides; Z88.0 Allergy status to penicillin; Z79.899 Other long term (current) drug therapy; Z79.890 Hormone replacement therapy; Z68.32 Body mass index [BMI] 32.0-32.9, adult
CPT/HCPCS: 49585; 81025; A9270; J0131; J1100; J2405; J2704; J2795; J3010; J3475; J3490; J7120; C1781

== ENCOUNTER 2025-08-21 19:41 | Emergency (ER) | payer BC ==
[2025-08-21 20:02] VITALS: BP 126/70; PULSE 79
[2025-08-21] MEDS: Ketorolac 30 MG/ML SDV IVPUSH ONE (20:12)
[2025-08-21] MEDS: Promethazine 25 MG/ML SDV IM ONE (20:13)
[2025-08-21 20:23] LABS: BASOPHILS ABSOLUTE AUTO 0.03 K/uL (0.00-0.20); BASOPHILS PERCENT AUTO 0.4 % (0.0-1.0); EOSINOPHILS ABSOLUTE AUTO 0.28 K/uL (0.00-0.45); EOSINOPHILS PERCENT AUTO 3.3 % (0.0-6.0); IMMATURE GRAN ABSOLUTE AUTO 0.02 K/uL (0.00-0.05); IMMATURE GRAN PERCENT AUTO 0.2 % (0.0-0.4); LYMPHOCYTES ABSOLUTE AUTO 2.69 K/uL (1.00-4.80); LYMPHOCYTES PERCENT AUTO 31.6 % (24.0-44.0); MEAN PLATELET VOLUME 10.8 fL (9.4-12.3); MONOCYTES ABSOLUTE AUTO 0.56 K/uL (0.00-0.80); MONOCYTES PERCENT AUTO 6.6 % (0.0-8.0); NEUTROPHILS ABSOLUTE AUTO 4.94 K/uL (1.80-7.70); NEUTROPHILS PERCENT AUTO 57.9 % (41.0-71.0); NRBC ABSOLUTE 0.00 K/uL (0.00-0.02); NRBC PERCENT 0.0 /100WBC (0.0-0.2); PLATELET COUNT,PLT 342 K/uL (150-400); RED BLOOD CELL COUNT 4.11 M/uL (4.10-5.30); WHITE BLOOD CELL COUNT,WBC 8.52 K/uL (3.9-11.3)
[2025-08-21 20:46] LABS: A/G RATIO 0.9 (0.9-1.6); ALANINE AMINOTRANSFERASE,ALT 18.0 IU/L (14-63); ASPARTATE AMNIOTRANSFERASE,AST 12.0 IU/L (15-37); BILIRUBIN TOTAL 0.6 mg/dL (0.2-1.0); BLOOD UREA NITROGEN,BUN 13.0 mg/dL (7.0-18.0); CARBON DIOXIDE,CO2 29.0 mmol/L (21.0-32.0); CHLORIDE,CL 103.0 mmol/L (98-107); CREATININE 1.2 mg/dL (0.6-1.0); EST CRCL DRUG DOSING (CG) 66.43 mL/min; GLUCOSE RANDOM 78.0 mg/dL (74-106); POTASSIUM,K 3.6 mmol/L (3.5-5.1); PROTEIN TOTAL,TP 7.4 g/dL (6.4-8.2); SODIUM,NA 141.0 mmol/L (136-145)
[2025-08-21 20:48] LABS: ESTIMATED GFR 59.0 mL/min (>60)
== END 2025-08-21 21:53 | disposition home or self-care (01) ==
LOC: MW.ED 19:41
DX: R11.2 Nausea with vomiting, unspecified (principal); E03.9 Hypothyroidism, unspecified; E66.9 Obesity, unspecified; Z79.899 Other long term (current) drug therapy; Z88.2 Allergy status to sulfonamides; Z91.048 Other nonmedicinal substance allergy status; Z88.3 Allergy status to other anti-infective agents; Z88.0 Allergy status to penicillin; Z88.1 Allergy status to other antibiotic agents; Z88.8 Allergy status to other drugs, medicaments and biological substances; Z75.3 Unavailability and inaccessibility of health-care facilities; Z68.30 Body mass index [BMI] 30.0-30.9, adult
CPT/HCPCS: 36415; 80053; 85025; 96361; 96372; 96374; 99284; A9270; J1885; J2550; J3490; J7030; 99283